=== PATIENT | female | born 1960 | race Caucasian/White ===

== ENCOUNTER 2017-12-05 11:42 | Day surgery (SDC) | payer MEDICARE, BC ==
[~2017-12-05] VITALS: Ht 152.4 cm; Wt 151.9 kg
[~2017-12-05 11:42] MED LIST: AMIT25 PO; CELE200 PO; DOCU100 PO; DULO30; ELIQUIS2.5 MG; GABA300; GABA300 PO; GABA600; LEVCAR2510 PO; MAGOXI400 PO; MELATIN3 MG PO; METF500C PO; MULVITMIND PO; MYRBETRIQ25 MG; OXYACE5T PO; PRAM.125 PO; Percocet 5-3251 EACH PO; ROPI1 PO; RXOXYACE PO; TERB24TC TOP; TRAM50 PO; Ultram50 MG PO; VALS80 PO; VITNEPH PO; Zantac150 MG PO; Zofran Odt8 MG SL
[2017-12-05] MEDS ORDERED: ALBU90OI (12:35)
[2017-12-05] MEDS ORDERED: DONE10 (12:35)
[2017-12-05] MEDS ORDERED: POTCHL10ER (12:36)
[2017-12-05] MEDS ORDERED: HYDR1TAB94 (12:37)
[2017-12-05] MEDS ORDERED: MAGOXI400 (12:37)
== END 2017-12-05 13:13 | disposition home or self-care (01) ==
LOC: ORSCSDS 11:42
PROVIDERS: Anesthesiology
PROC: 3E0R33Z Introduction of Anti-inflammatory into Spinal Canal, Percutaneous Approach (ICD-10-PCS; principal; 2017-12-05 12:30)
DX: M54.16 Radiculopathy, lumbar region (principal); G47.33 Obstructive sleep apnea (adult) (pediatric); E66.01 Morbid (severe) obesity due to excess calories; F32.9 Major depressive disorder, single episode, unspecified; J45.909 Unspecified asthma, uncomplicated; G20 Parkinson's disease; I10 Essential (primary) hypertension; E11.9 Type 2 diabetes mellitus without complications; Z79.899 Other long term (current) drug therapy; Z79.01 Long term (current) use of anticoagulants; Z51.81 Encounter for therapeutic drug level monitoring
CPT/HCPCS: 36415; 85610; J1040

== ENCOUNTER 2018-03-18 16:44 | Emergency (ER) | payer MEDICARE, BC ==
[~2018-03-18] VITALS: Ht 152.4 cm; Wt 165.6 kg
[~2018-03-18 16:44] MED LIST changes: +ALBU90OI; +DONE10; +HYDR1TAB94; +MAGOXI400; +POTCHL10ER
[2018-03-18] MEDS ORDERED: BUPR150ER PO (17:07)
[2018-03-18] MEDS ORDERED: GABA600 PO (17:07)
[2018-03-18] MEDS ORDERED: ELIQUIS5 MG PO (17:07)
[2018-03-18] MEDS ORDERED: GABA300 PO (17:07)
[2018-03-18] MEDS ORDERED: CARB25 PO (17:08)
[2018-03-18] MEDS ORDERED: CARBIDOPA/LEVODOPA PO ×2 (17:09→17:10)
[2018-03-18] MEDS ORDERED: ROPI2 PO (17:10)
[2018-03-18] MEDS ORDERED: ALBU90OI INH (17:10)
[2018-03-18] MEDS ORDERED: MYRBETRIQ50 MG PO (17:10)
[2018-03-18] MEDS ORDERED: DONE10 PO (17:10)
[2018-03-18] MEDS ORDERED: HYDR1TAB94 PO (17:11)
[2018-03-18] MEDS ORDERED: Cymbalta60 MG PO (17:11)
[2018-03-18] MEDS ORDERED: POTCHL10ER PO (17:11)
[2018-03-18] MEDS ORDERED: Percocet 5-3251 EACH PO (18:14)
== END 2018-03-18 19:20 | disposition home or self-care (01) ==
LOC: ER 16:44
DX: S42.201A Unspecified fracture of upper end of right humerus, initial encounter for closed fracture (principal); W01.0XXA Fall on same level from slipping, tripping and stumbling without subsequent striking against object, initial encounter; E11.9 Type 2 diabetes mellitus without complications; E66.01 Morbid (severe) obesity due to excess calories; Z79.899 Other long term (current) drug therapy
CPT/HCPCS: 29105; 73030; 96372; 99284; J3010

== ENCOUNTER → 2018-06-05 | Outpatient (CLI) | payer MEDICARE, BC ==
[~2018-06-05] MED LIST changes: +ALBU90OI INH; +BUPR150ER PO; +CARB25 PO; +CARBIDOPA/LEVODOPA PO; +Cymbalta60 MG PO; +DONE10 PO; +ELIQUIS5 MG PO; +GABA600 PO; +HYDR1TAB94 PO; +MYRBETRIQ50 MG PO; +POTCHL10ER PO; +ROPI2 PO
== END | disposition home or self-care (01) ==
LOC: LAB EV 18:49 → LAB SHORT 18:49
DX: M70.22 Olecranon bursitis, left elbow (principal)
CPT/HCPCS: 87070; 87075

== ENCOUNTER → 2018-11-11 | Outpatient (CLI) | payer MEDICARE, BC ==
[2018-11-11 13:55] LABS: Hematocrit 37.3 % (33.0-51.0); Hemoglobin 12.1 g/dL (11.5-16.0)
[2018-11-11 14:08] LABS: Albumin, Blood 3.4 g/dL (3.4-5.0); Anion Gap 11 mmol/L (6-16); Blood Urea Nitrogen 27 mg/dL (8-24); Bun/Creatinine Ratio 18.4 (12.0-20.0); CO2, Blood 27 mmol/L (21-32); Chloride, Blood 103 mmol/L (98-108); Creatinine, Blood 1.47 mg/dL (0.40-1.00); Glomerular Filtration Rate 36 (60-); Glucose, Blood 115 mg/dL (70-99); Phosphorus, Blood 3.8 mg/dL (2.5-4.9); Potassium, Blood 4.6 mmol/L (3.5-5.5); Sodium, Blood 141 mmol/L (136-145)
== END | disposition home or self-care (01) ==
LOC: LAB EV 13:45 → LAB SHORT 13:45
PROVIDERS: Internal Medicine
DX: N17.9 Acute kidney failure, unspecified (principal); N18.9 Chronic kidney disease, unspecified
CPT/HCPCS: 36415; 80069; 85014; 85018

== ENCOUNTER → 2019-03-26 | Outpatient (CLI) | payer MEDICARE, BC ==
[2019-03-26 10:33] LABS: Microalb/Creat Ratio UR, Rand Unable to Calculate mg/g (0.000-30.000); Microalbumin, Random Urine <5.000 mg/L (0.000-20.000)
== END ==
LOC: LAB EV 08:54
PROVIDERS: Family Medicine
DX: I10 Essential (primary) hypertension (principal)
CPT/HCPCS: 82043; 82570

== ENCOUNTER → 2019-10-24 | Outpatient (CLI) | payer MEDICARE, BC | LOC: LAB EV 10:53 → LAB SHORT 10:53 | DX: N39.0 Urinary tract infection, site not specified (principal) | CPT/HCPCS: 87086 ==

== ENCOUNTER 2020-08-21 09:47 | Inpatient (IN) | payer MEDICARE, BC ==
[~2020-08-21] VITALS: Ht 152.4 cm; Wt 139.9 kg
[~2020-08-21 09:47] MED LIST changes: +CARBLEV250 SL; +Cymbalta20 MG PO; -Cymbalta60 MG PO; -ROPI2 PO; +Ropinirole HCl1 MG PO
[2020-08-21 10:37] LABS: BASOPHILS ABSOLUTE AUTO 0.02 K/mm3 (0.00-0.23); BASOPHILS PERCENT AUTO 0 % (0-2); EOSINOPHILS ABSOLUTE AUTO 0.01 K/mm3 (0.00-0.68); EOSINOPHILS PERCENT AUTO 0 % (0-6); Hematocrit 36.2 % (33.0-51.0); Hemoglobin 11.5 g/dL (11.5-16.0); IMMATURE GRAN ABSOLUTE AUTO 0.03 K/mm3 (0.00-0.10); IMMATURE GRAN PERCENT AUTO 1 % (0-1); LYMPHOCYTES ABSOLUTE AUTO 0.55 K/mm3 (0.84-5.20); LYMPHOCYTES PERCENT AUTO 9 % (21-46); MONOCYTES ABSOLUTE AUTO 0.98 K/mm3 (0.16-1.47); MONOCYTES PERCENT AUTO 16 % (4-13); Mean Corpuscular HGB 30.6 pg (26.0-34.0); Mean Corpuscular HGB Conc 31.8 g/dL (31.5-36.5); Mean Corpuscular Volume 96 fL (80-100); Mean Platelet Volume 8.7 fL (9.1-12.4); NEUTROPHILS ABSOLUTE AUTO 4.74 K/mm3 (1.96-9.15); NEUTROPHILS PERCENT AUTO 75 % (41-73); Platelet Count 124 K/mm3 (150-400); RDW Coefficient Variation 14.4 % (11.7-14.2); RDW Standard Deviation 50.5 fL (35.1-46.3); Red Blood Cell Count 3.76 M/mm3 (3.80-5.20); White Blood Cell Count 6.33 K/mm3 (4.00-11.30)
[2020-08-21 10:52] LABS: Alanine Aminotransfer (ALT/SGP 9 U/L (12-78); Albumin, Blood 3.3 g/dL (3.4-5.0); Alk Phos 84 U/L (50-136); Anion Gap 4 mmol/L (6-16); Aspartate Aminotrans (AST/SGOT 16 U/L (12-37); Bilirubin, Total 0.5 mg/dL (0.1-1.0); Blood Urea Nitrogen 36 mg/dL (8-24); Bun/Creatinine Ratio 26.9 (12.0-20.0); CO2, Blood 28 mmol/L (21-32); Calcium, Blood 8.3 mg/dL (8.5-10.1); Chloride, Blood 109 mmol/L (98-108); Creatinine, Blood 1.34 mg/dL (0.40-1.00); Globulin, Blood 3.4 g/dL (2.2-4.0); Glomerular Filtration Rate 43 (60-); Glucose, Blood 108 mg/dL (70-99); Potassium, Blood 4.6 mmol/L (3.5-5.5); Sodium, Blood 141 mmol/L (136-145); Total Protein, Blood 6.7 g/dL (6.4-8.2); Troponin I <0.015 ng/mL (0.000-0.040)
[2020-08-21 13:11] LABS: PCO2 Arterial 41.1 mmHg (35-45); pH Blood Arterial 7.41 (7.35-7.45)
[2020-08-21] MEDS ORDERED: LISI5 PO (13:20)
[2020-08-21] MEDS ORDERED: Vitamin D2000 UNIT PO (13:23)
[2020-08-21] MEDS ORDERED: FURO20 PO (13:23)
[2020-08-21] MEDS ORDERED: PYRI100 PO (13:24)
[2020-08-21] MEDS ORDERED: CENTRUM SILVER1 EAC2 PO (13:24)
--- NOTE | 2020-08-21 18:46 | NUR ---
Taylor arrived from the ED on stretcher, and was assisted to the bed in room 13 with use of slider sheet and 3 staff members helping. She has a fever. Personal clothes were removed, pt gown put on as well as ice packs to her armpits. Pt states she feels chilled. Explained that it is due to her fever. Extra blankets removed and Tylenol given for fever. She is hungry. Food and ice water provided and medications given as scheduled for this time. Audible wheezing noted; pt states that she can feel and hear it. She is dyspneic with minimal activity. Spo2 93% on 2 l/min oxygen at rest, 90% while she is eating and drinking. Telemetry monitoring shows sinus rhythm at 82 bpm. Significant edema of her legs and feet and ankles, which pt states is worse than usual. Unable to get our largest BISHOP hose on her. PT's Urbano states that he will bring hers from home. 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 Call light in place, and pt is eating with good appetite with her at her side.
--- NOTE | 2020-08-22 05:19 | NUR ---
END OF SHIFT SUMMARY NO ACUTE CHANGES THIS SHIFT. PT REMAINS AXO. IN SR 80'S WITH STABLE BP. PT CONTINUES TO BE ON 3-4LNC, SPO2 >92% EXCEPT WHEN REPOSITIONING/MOVING. PT SPO2 DESATS QUICKLY AND RR INCREASES DRAMATICALLY AND EXP WHEEZES BECOME MUCH MORE PRONOUNCED. THIS RESOLVES AFTER A FEW MINUTES OF RESTING. PT HAS RECEIVED RT TREATMENTS TO NO AVAIL PER PT. PT HAS BEEN INCONTINENT MULTIPLE TIMES OF URINE THIS SHIFT. STAFF [place] [facility] [place] WAS NOT SUCCESFUL DUE TO SEVERE EXP DYSPNEA/DECONDITIONING. PT WAS SO TIRED THAT WHILE SITTING AT SIDE OF BED, SHE COULDN'T WAIT TO VOID AND COULDN'T GET ON BEDPAN NFAST ENOUGH THAT SHE BEGAN TO VOID ON THE FLOOR. PT HAS HAD A LOW GRADE FEVER FOR MOST OF SHIFT, TOWARDS END OF SHIFT, TEMPERATURE HAS INCREASED, SEE EMAR TYLENOL & ICEPACKS. OTHERWISE, PT HAS BEEN REPOSITIONED MULTIPLE TIMES BY STAFF, ADMISSION PACKET COMPLETED. WILL CONTINUE TO MONITOR UNTIL SHIFT CHANGE.
[2020-08-22 05:29] LABS: BASOPHILS ABSOLUTE AUTO 0.01 K/mm3 (0.00-0.23); BASOPHILS PERCENT AUTO 0 % (0-2); EOSINOPHILS PERCENT AUTO 0 % (0-6); Hematocrit 37.5 % (33.0-51.0); Hemoglobin 11.7 g/dL (11.5-16.0); IMMATURE GRAN ABSOLUTE AUTO 0.02 K/mm3 (0.00-0.10); IMMATURE GRAN PERCENT AUTO 0 % (0-1); LYMPHOCYTES ABSOLUTE AUTO 0.49 K/mm3 (0.84-5.20); LYMPHOCYTES PERCENT AUTO 7 % (21-46); MONOCYTES PERCENT AUTO 13 % (4-13); Mean Corpuscular HGB 30.5 pg (26.0-34.0); Mean Corpuscular HGB Conc 31.2 g/dL (31.5-36.5); Mean Corpuscular Volume 98 fL (80-100); Mean Platelet Volume 8.9 fL (9.1-12.4); NEUTROPHILS ABSOLUTE AUTO 5.75 K/mm3 (1.96-9.15); NEUTROPHILS PERCENT AUTO 80 % (41-73); Platelet Count 124 K/mm3 (150-400); RDW Coefficient Variation 14.5 % (11.7-14.2); RDW Standard Deviation 52.5 fL (35.1-46.3); Red Blood Cell Count 3.84 M/mm3 (3.80-5.20); White Blood Cell Count 7.17 K/mm3 (4.00-11.30)
[2020-08-22 05:40] LABS: International Normalized Ratio 1.22; Prothrombin Time Results 12.9 Sec (9.7-11.5)
[2020-08-22 05:56] LABS: Alanine Aminotransfer (ALT/SGP 8 U/L (12-78); Albumin, Blood 3.2 g/dL (3.4-5.0); Albumin/Globulin Ratio 0.8 (0.8-1.8); Alk Phos 81 U/L (50-136); Anion Gap 5 mmol/L (6-16); Aspartate Aminotrans (AST/SGOT 31 U/L (12-37); Bilirubin, Total 0.5 mg/dL (0.1-1.0); Blood Urea Nitrogen 37 mg/dL (8-24); Bun/Creatinine Ratio 25.7 (12.0-20.0); CO2, Blood 27 mmol/L (21-32); Calcium, Blood 8.5 mg/dL (8.5-10.1); Chloride, Blood 107 mmol/L (98-108); Creatinine, Blood 1.44 mg/dL (0.40-1.00); Globulin, Blood 3.8 g/dL (2.2-4.0); Glomerular Filtration Rate 39 (60-); Glucose, Blood 85 mg/dL (70-99); Potassium, Blood 4.6 mmol/L (3.5-5.5); Sodium, Blood 139 mmol/L (136-145); Troponin I <0.015 ng/mL (0.000-0.040)
--- NOTE | 2020-08-22 16:59 | NUR ---
SHIFT SUMMARY PATIENT HAS BEEN 2 PERSON MAX ASSIST WITH BEDPAN AND BED CHANGES TODAY. PATIENT ON 3L O2 VIA NASAL CANNULA. WAS AT BEDSIDE TODAY OFFERING SUPPORT. PATIENT HAS BEEN AOX3. PATIENT BECOMES VERY SOB WITH ANY EXERTION. AUDIBLE WHEEZES THROUGHOUT. CALL LIGHT WITHIN PATIENT REACH.
[2020-08-22 23:35] LABS: Source, Urine Catheter
[2020-08-22 23:45] LABS: Bilirubin, Urine Neg (Neg); Blood, Urine 1+ (Neg); Glucose Qualitative, Urine Neg (Neg); Ketones, Urine 1+ (Neg); Leukocyte Esterase, Urine Neg (Neg); Nitrite, Urine Neg (Neg); Protein, Urine 2+ (Neg); Urobilinogen, Urine NORM (Normal)
[2020-08-22 23:46] LABS: Appearance, Urine Clear (Clear); Color, Urine Yellow (P-Yellow)
[2020-08-22 23:51] LABS: Bacteria Few /hpf; Red Blood Cells, Urine 0-2 /hpf (0-2); Squamous Epithelial Cells Not Seen /hpf (Few); White Blood Cells, Urine 0-2 /hpf (0-5)
[2020-08-23 04:30] LABS: BASOPHILS ABSOLUTE AUTO 0.01 K/mm3 (0.00-0.23); BASOPHILS PERCENT AUTO 0 % (0-2); EOSINOPHILS PERCENT AUTO 0 % (0-6); Hematocrit 38.7 % (33.0-51.0); IMMATURE GRAN ABSOLUTE AUTO 0.01 K/mm3 (0.00-0.10); IMMATURE GRAN PERCENT AUTO 0 % (0-1); LYMPHOCYTES ABSOLUTE AUTO 0.51 K/mm3 (0.84-5.20); LYMPHOCYTES PERCENT AUTO 10 % (21-46); MONOCYTES ABSOLUTE AUTO 0.72 K/mm3 (0.16-1.47); MONOCYTES PERCENT AUTO 14 % (4-13); Mean Corpuscular HGB 30.3 pg (26.0-34.0); Mean Corpuscular Volume 98 fL (80-100); Mean Platelet Volume 8.8 fL (9.1-12.4); NEUTROPHILS ABSOLUTE AUTO 4.01 K/mm3 (1.96-9.15); NEUTROPHILS PERCENT AUTO 76 % (41-73); Platelet Count 130 K/mm3 (150-400); RDW Coefficient Variation 13.8 % (11.7-14.2); RDW Standard Deviation 50.6 fL (35.1-46.3); Red Blood Cell Count 3.96 M/mm3 (3.80-5.20); White Blood Cell Count 5.26 K/mm3 (4.00-11.30)
[2020-08-23 04:48] LABS: Albumin, Blood 2.8 g/dL (3.4-5.0); Albumin/Globulin Ratio 0.7 (0.8-1.8); Bilirubin, Total 0.4 mg/dL (0.1-1.0); Bun/Creatinine Ratio 31.5 (12.0-20.0); C-REACTIVE PROTEIN, EXT RANGE 14.4 mg/dL (0.000-0.300); Calcium, Blood 8.6 mg/dL (8.5-10.1); Creatinine, Blood 1.08 mg/dL (0.40-1.00); Globulin, Blood 3.8 g/dL (2.2-4.0); Total Protein, Blood 6.6 g/dL (6.4-8.2)
--- NOTE | 2020-08-23 04:51 | NUR ---
END OF SHIFT SUMMARY NO ACUTE CHANGES THIS SHIFT. VSS. REMAINS AXO. IN SR. ON 3LNC, SPO2 >92%. PT STATES BREATHING FEELS "EASIER AND LESS WHEEZY". LUNG SOUNDS ONLY PRESENT WITH WHEEZING WITH EXERTION. BONDS CATHETER WAS SUCCESFULLY PLACED THIS SHIFT AND URINE SAMPLE SENT TO LAB. PANNUS/FOLDS CLEANED EXTENSIVELY AND DRIED/NYSTATIN APPLIED. OTHERWISE, PT RESTING IN ROOM.STAFF CHECKING ON PT AND PEEKING THROUGH ANTE ROOM DOOR. PT REMAINS IN ISOLATION. NEGATIVE PRESSURE WORKING VIA THE MONITOR IN ANTE ROOM. WILL CONTINUE TO MONITOR UNTIL SHIFT CHANGE.
--- NOTE | 2020-08-23 08:22 | NUR ---
Pt alert, awake, audible transient wheezing noted. spo2 91% on room air at rest. improved to 95% on 2 l/min while eating. States she would like to sit up, but she is far too weak to do this at this time. She attempted, but could not, even with assistance. States she feels that her breathing is not as good as yesterday., She states that she is not in pain. She states she has a good appetite. STates had BM yesterday. Damon draining clear yellow urine. IV right wrist is leaking and painful to the pt when flushed. Will restart and then administer solumedrol afterwards.
--- NOTE | 2020-08-23 19:15 | NUR ---
ASSUMED CARE REPORT RECEIVED FROM ASH EVANS. PT SITTING UP IN RECLINER EATING DINNER. MILD TACYPNEA OBSERVED. SPO2@94% WITH O2@2LPM VIA N/C. DENIES ANY PAIN AT THIS TIME. CALL LIGHT WITHIN REACH. WILL CONTINUE TO MONITOR
--- NOTE | 2020-08-23 19:26 | NUR ---
Taylor was very tired this morning, but this afternoon after a bed bath she tolerated a transfer to the recliner chair with ceiling lift. Not able to sit on side of bed yet due to weakness. She has had a good appetite. Had a normal BM today, white continues draining clear yellow urine. Has continued to require 1-2 l/min of oxygen today. Audible and auscultated wheezing noted intermittently throughout the day, as well as tachypnea and dyspnea with minimal exertion. Normal sinus rhythm by telemetry montoring, and blood pressure stable.
[2020-08-24 04:54] LABS: BASOPHILS PERCENT AUTO 0 % (0-2); EOSINOPHILS PERCENT AUTO 0 % (0-6); Hematocrit 37.7 % (33.0-51.0); IMMATURE GRAN ABSOLUTE AUTO 0.01 K/mm3 (0.00-0.10); IMMATURE GRAN PERCENT AUTO 0 % (0-1); LYMPHOCYTES ABSOLUTE AUTO 0.53 K/mm3 (0.84-5.20); LYMPHOCYTES PERCENT AUTO 9 % (21-46); MONOCYTES ABSOLUTE AUTO 0.67 K/mm3 (0.16-1.47); MONOCYTES PERCENT AUTO 12 % (4-13); Mean Corpuscular HGB 30.5 pg (26.0-34.0); Mean Corpuscular HGB Conc 31.8 g/dL (31.5-36.5); Mean Corpuscular Volume 96 fL (80-100); Mean Platelet Volume 9.2 fL (9.1-12.4); NEUTROPHILS ABSOLUTE AUTO 4.43 K/mm3 (1.96-9.15); NEUTROPHILS PERCENT AUTO 79 % (41-73); Platelet Count 155 K/mm3 (150-400); RDW Coefficient Variation 13.7 % (11.7-14.2); RDW Standard Deviation 49.3 fL (35.1-46.3); Red Blood Cell Count 3.93 M/mm3 (3.80-5.20); White Blood Cell Count 5.64 K/mm3 (4.00-11.30)
[2020-08-24 05:13] LABS: Albumin, Blood 2.9 g/dL (3.4-5.0); Albumin/Globulin Ratio 0.8 (0.8-1.8); Bilirubin, Total 0.3 mg/dL (0.1-1.0); Bun/Creatinine Ratio 29.6 (12.0-20.0); Calcium, Blood 8.8 mg/dL (8.5-10.1); Creatinine, Blood 1.08 mg/dL (0.40-1.00); Globulin, Blood 3.8 g/dL (2.2-4.0); Potassium, Blood 4.8 mmol/L (3.5-5.5); Total Protein, Blood 6.7 g/dL (6.4-8.2)
--- NOTE | 2020-08-24 06:43 | NUR ---
SHIFT SUMMARY PT REMAINED A&O THROUGHOUT SHIFT. SPO2 92-95% WITH O2@2LPM, DYSPNEA WITH ALL REPOSITIONING AND EXERTION. PT HAS CORSE PAINFUL COUGH THAT SHE SAYS WOULDN'T ALLOW HER TO SLEEP. URINARY CATH REMOVED AT 0400 DUE TO PAIN, PT STATES SHE FEELS MUCH BETTER WITHOUT. PT DID CALL FOR BEDPAN AT 0600 AND VOIDED CLEAR YELLOW URINE.
--- NOTE | 2020-08-24 17:19 | NUR ---
Shift Summary Patient arrived to unit approximately 0945. Received report from Eli RN-PCU. Arrived via bed transfer, on 2L NC oxygen. No white catheter on arrival to unit, at bedside. A/Ox3, pleasant and cooperative with care, calls appropriately for needs. Incontinent/continent s/p white catheter removal last night per Eli, voiding good. 2 max assist c repositioning and changing. Denies pain. L/S wheezy throughout. Respirations > 20's, oxygen saturation > 91% on 2L NC. Dyspneic with exertion. Appetite is good. Will report to oncoming RN and cont. to monitor.
--- NOTE | 2020-08-24 18:23 | NUR ---
Jill was confused at first, but she cleared a bit with conversation. Prayer for healing provided. She was appreciaitve. She tells me she is hopeful for recovery. No family present at time of visit. I will remain available to pt and family.
--- NOTE | 2020-08-25 05:32 | NUR ---
SHIFT SUMMARY: VSS. BRADYCARDIC. RESPS 16-22. APPEAR LABORED BUT PT STATES SHE DOES NOT FEEL SOB. 02 SATS 92% ON 2L VIA NC. LS CLEAR W/DIM BASES. BRONCHIAL WHEEZING AUSCULTATED. OCC COUGH PRODUCING SMALL AMTS OF WHITE THICK SPUTUM. BREATHING TX PER RT. PT REMAINED IN BED TONIGHT. WAS ABLE TO TURN IN BED W/ 1 ASSIST. DENIES PAIN. NO ACUTE CONCERNS AT THIS TIME. WILL CONT TO MONITOR.
--- NOTE | 2020-08-25 19:27 | NUR ---
Shift Summary A/Ox4 with occassional forgetfulness. For example, patient asked for Tylenol for shoulder pain from assisting with repositioning and changing. When this RN went in to give medication, patient stated she had asked for that yesterday when in fact it was today. MIKEL (son) has called and wound like to know discharge planning status prior to discharge, this has been relayed to night nurse. Lung sounds: crackles and wheezes throughout. Remains on 2L O2, patient removes O2 and wears when feeling short of breath per patient state. Otherwise, no acute changes today. Will report to oncoming RN. MIKEL's phone number .
--- NOTE | 2020-08-26 04:21 | NUR ---
PROGRAM DIRECTOR/MORNING SHOW HOST SUMMARY PT WAS PLACED ON CONTINUOUS BI-OX AND HAS MAINTAINED AN O2 SATURATION OF >92 EVEN WHILE BEING ROLLED TO CHANGE BED. PT HAS HAD NO NEW S/S THIS SHIFT, PT STATES THAT HER BREATHING FEELS BETTER TODAY THAN PREVIOUS DAY. WCTM.
--- NOTE | 2020-08-26 17:15 | NUR ---
SUMMARY PT RESTING IN BED WATCHING TV, PT HAS BEEN PLEASANT AND COOPERATIVE WITH CARE, INCONTINENT AND IN ATTENDS, PT ABLE TO FEED HERSELF AND TAKE HER PILLS WHOLE, PT OCC FORGETFUL AND NEEDS REORIENTATION, PT ON A CONT PULSE OX, O2 STARTED AT 2L THIS MORNING AND HAS BEEN UP TO 4L, THERAPY HAS WORKED WITH THE PT, SHE TIRES EASILY, VSS, WILL CONT TO MONITOR
--- NOTE | 2020-08-27 05:56 | NUR ---
ZINC ETCHER SUMMARY PT HAD AN ELEVATED BP OF 188/90 AT THE START OF THE SHIFT SO THE PROVIDER [place] WAS CONTACTED AND SHE SAID TO CONTINUE TO MONITOR THE PT SO THE PT WAS REASSESED LATER IN THE SHIFT AND IT HAD DROPPED TO 129/69. PT IS ON 3L NC AND HAS MAINTAINED AN O2 SAT OF >90 EXCEPT ONCE WHEN THE O2 FELL OFF AND HER O2 SAT DROPPED TO 87. PT CONTINUES TO PRODUCE LARGE AMOUNTS OF INCONTINENT URINE. NO C/O PAIN OR NAUSEA, WCTM.
--- NOTE | 2020-08-27 10:16 | NUR ---
CHANGED depends and emptied resivoir, tried to use bed tan but nothing came, repositioned and cleaned pt
--- NOTE | 2020-08-27 10:22 | NUR ---
in to visit, said pt did not need to have an IV unless iv medication was required
--- NOTE | 2020-08-27 18:22 | NUR ---
sitting up eating dinner, able to reach call light, bed in low position, denies pain took all medication and treatments, will continue to monitor and treat until share bsr with noc nurse
--- NOTE | 2020-08-27 22:42 | NUR ---
CALLED HOSPITALIST PT EXPERIENCING INCREASED O2 NEEDS. PT WOB HAS INCREASED DRAMATICALLY. PT IS HALLUCINATING AND NO LONGER ABLE TO COMMUNICATE CLEARLY WITH ME ON PREVIOUS SHIFTS. SHE WAS RUNNING A LOW GRADE FEVER FOR WHICH I GAVE HER TYLENOL. HOSPITALIST HAS PUT IN ORDERS TO TRANSFER THE PT.
--- NOTE | 2020-08-27 23:20 | NUR ---
PT TRANSFER NOTE PT TRANSFERED TO ICU. PERSONAL POSSESSIONS SENT WITH PT. HANDOFF REPORT CALLED TO ICU NURSE WAQAR.
[2020-08-27 23:42] LABS: Source, Urine Catheter
[2020-08-27 23:45] LABS: Bilirubin, Urine Neg (Neg); Blood, Urine 1+ (Neg); Glucose Qualitative, Urine Neg (Neg); Ketones, Urine 1+ (Neg); Leukocyte Esterase, Urine 2+ (Neg); Nitrite, Urine Pos (Neg); Protein, Urine 1+ (Neg); Specific Gravity, Urine 1.015 (1.003-1.022); Urobilinogen, Urine NORM (Normal)
[2020-08-27 23:50] LABS: Appearance, Urine Hazy (Clear); Color, Urine Yellow (P-Yellow)
--- NOTE | 2020-08-27 23:52 | NUR ---
ASSUMED PT CARE AT 2250 PT ARRIVED ON UNIT ON 15L NON-REBREATHER. MOANING AND GROANING. UNABLE TO SPEAK IN COMPLETE SENTENCES. UNABLE TO ASSESS MENTATION. PT APPEARS TO BE HALLUCINATING SHE WILL GAZE OFF TO AN AREA IN THE ROOM AND THEN JUMP IF SOMETHING IS SCARING HER. HER TEMP IS 101.7; PER REPORT, PT WAS MEDICATED WITH TYENOL WITH GOOD EFFECT EARLIER. MAY ATTEMPT ANOTHER ADMINISTRATION VIA RECTALLY IF TEMP CONTINUES TO INCREASE. TEMP BONDS PROBE PLACED FOR MORE ACCURATE MEASUREMENT OF TEMP. URINE SENT TO LAB FOR UA. RESP RATE IN THE 30-40'S. SBP'S 90-110'S. HR 70'S; NSR. PT PLACED ON AIRVO AT 50L AT 57%. SPO2 96%. PT IS OKAY WITH INTUBATION; NO CPR. PT REMAINS ON AIRBORNE ISOLATION PRECAUTIONS D/T COVID POSITIVE PT ON HIFLOW OXYGEN. PT HAS ONE 20G IV TO LEFT FOREARM. UNSUCCESSFUL PERIPHERALS; PT FORMS A HEMATOMA SOON SHE IS POKED. IS GOING TO NEED A POWERGLIDE OR CENTRAL LINE OF SOME SORT. PT IS UNABLE TO DEMONSTRATE ADEQUATE USE OF CALL LIGHT; THEREFORE, WILL CONTINUE TO MONITOR CLOSELY.
[2020-08-27 23:55] LABS: Bacteria Many /hpf; Red Blood Cells, Urine 0-2 /hpf (0-2); Squamous Epithelial Cells Not Seen /hpf (Few); White Blood Cells, Urine 50-100 /hpf (0-5)
--- NOTE | 2020-08-28 00:05 | NUR ---
CALLED PT'S SPOUSE CALLED PT'S SPOUSE, LEOBARDO, INFORMED HIM OF PT TRANSFER TO ICU.
--- NOTE | 2020-08-28 00:23 | NUR ---
CALL TO FAMILY CALL PLACED TO , LEOBARDO, AND UPDATED REGARDING PT'S CONDITION.
[2020-08-28 04:12] LABS: BASOPHILS ABSOLUTE AUTO 0.02 K/mm3 (0.00-0.23); BASOPHILS PERCENT AUTO 0 % (0-2); EOSINOPHILS ABSOLUTE AUTO 0.01 K/mm3 (0.00-0.68); EOSINOPHILS PERCENT AUTO 0 % (0-6); Hematocrit 36.9 % (33.0-51.0); Hemoglobin 11.9 g/dL (11.5-16.0); IMMATURE GRAN ABSOLUTE AUTO 0.09 K/mm3 (0.00-0.10); IMMATURE GRAN PERCENT AUTO 1 % (0-1); LYMPHOCYTES ABSOLUTE AUTO 0.58 K/mm3 (0.84-5.20); LYMPHOCYTES PERCENT AUTO 7 % (21-46); MONOCYTES ABSOLUTE AUTO 0.71 K/mm3 (0.16-1.47); MONOCYTES PERCENT AUTO 8 % (4-13); Mean Corpuscular HGB 30.4 pg (26.0-34.0); Mean Corpuscular HGB Conc 32.2 g/dL (31.5-36.5); Mean Corpuscular Volume 94 fL (80-100); Mean Platelet Volume 8.8 fL (9.1-12.4); NEUTROPHILS ABSOLUTE AUTO 7.15 K/mm3 (1.96-9.15); NEUTROPHILS PERCENT AUTO 84 % (41-73); Platelet Count 177 K/mm3 (150-400); RDW Coefficient Variation 13.2 % (11.7-14.2); RDW Standard Deviation 45.7 fL (35.1-46.3); Red Blood Cell Count 3.92 M/mm3 (3.80-5.20); White Blood Cell Count 8.56 K/mm3 (4.00-11.30)
[2020-08-28 04:27] LABS: Bun/Creatinine Ratio 34.6 (12.0-20.0); Calcium, Blood 8.8 mg/dL (8.5-10.1); Creatinine, Blood 1.3 mg/dL (0.40-1.00); Potassium, Blood 4.4 mmol/L (3.5-5.5)
--- NOTE | 2020-08-28 06:24 | NUR ---
END OF SHIFT SUMMARY NO SIGNIFICANT CHANGE SINCE ENTRY NOTE. PT REMAINS ON AIRVO AT 50L WITH FIO2 57-59%; SPO2 >90%. MENTATION REMAINS UNCHANGED. PT VERY DIAPHORETIC WITH TEMP 101.7; THEREFORE, MEDICATED WITH KS TYLENOL WITH GOOD EFFECT. PT CONTINUED TO TAKE OFF AIRVO D/T AIR HUNGER. STATING "I CAN'T BREATHE". PLACED PT BACK ON AIRVO AND INTO BILATERAL SOFT WRIST RESTRAINTS. PT VERY CONFUSED. ORAL CARE PROVIDED MULTIPLE TIMES D/T DRY/CRACKED ORAL CAVITY AND LIPS. VSS, SEE FLOWSHEET. PT REMAINS SL; TOTAL URINE OUTPUT WAS 200CC OF DARK SHANTAL COLORED URINE; SEDIMENT NOTED. CALL OUT TO TAL REGARDING LOW URINE OUTPUT; HOWEVER, DR. PARADA PREFERRED IF DAY HOSPITALIST DECIDED IF MAINTENANCE FLUIDS ARE NEEDED OR NOT. PT REQUIRES FREQUENT CHECKS SHE DOESN'T NOT COMPREHEND HOW TO USE TO THE CALL LIGHT AT THIS TIME. WILL CONTINUE TO MONITOR UNTIL REPORT IS HANDED OFF TO ONCOMING RN.
--- NOTE | 2020-08-28 12:43 | NUR ---
ASSUMED CARE AT 0700 PT LAYING IN BED WITH AIRVO AT 50L, FIO2 60%, AND TOLERATING. PT APPEARS CONFUSED, PT SAID SHE WAS AT [facility] BUT IN [place]. PT ABLE TO ANSWER SOME YES/NO QUESTIONS AND FOLLOWS SIMPLE COMMANDS. TEMP 101.4, HR 83, BP 115/74. SEE SHIFT ASSESSMENT FOR FULL ASSESSMENT.
--- NOTE | 2020-08-28 18:32 | NUR ---
END OF SHIFT SUMMARY PT CONT TO BE ON AIRVO 50L, FIO2 60%. PT CONT TO BE CONFUSED KNOWING THAT SHE IS AT [facility] BUT IN [place], UNKNOWN MONTH AND YEAR. PT SLEPT ON AND OFF DURING SHIFT. ABLE TO GIVE MEDS ORALLY ONE AT A TIME AND ADDRESSING PT EACH TIME STATING THE ACTION. BONDS IN PLACE AND DRAINING TO GRAVITY. MAX TEMP 102.2, TEMP NOW 99.6. HR 60-70. RR 20'S. SBP 120-170. WILL REPORT TO PM RN WHEN AVAILABLE.
--- NOTE | 2020-08-28 19:55 | NUR ---
SHIFT ASSESSMENT ASSUMED CARE @ 1900, REPORT RECV'D FROM RICHIE AND MOIZ, RN'S. PT ALERT TO PERSON AND PLACE, SLOW TO ANSWER QUESTIONS BUT COOPERATIVE. INTERMITTENTLY CONFUSED. ON AIRVO 50L/ FIO2- 60% c O2 SATS >90%. SINUS/ SINUS DHRUV ON THE FISH AND WILDLIFE WARDEN. BONDS CATH PATENT, DRAINING YELLOW URINE. SOFT WRIST RESTRAINTS IN PLACE DUE TO PT PULLING OFF AIRVO. WILL CONTINUE TO MONITOR.
[2020-08-29 04:10] LABS: Hematocrit 37.7 % (33.0-51.0); Hemoglobin 12.5 g/dL (11.5-16.0); Mean Corpuscular HGB 31.1 pg (26.0-34.0); Mean Corpuscular HGB Conc 33.2 g/dL (31.5-36.5); Mean Corpuscular Volume 94 fL (80-100); Mean Platelet Volume 8.7 fL (9.1-12.4); Platelet Count 158 K/mm3 (150-400); RDW Coefficient Variation 12.9 % (11.7-14.2); RDW Standard Deviation 44.5 fL (35.1-46.3); Red Blood Cell Count 4.02 M/mm3 (3.80-5.20); White Blood Cell Count 9.96 K/mm3 (4.00-11.30)
[2020-08-29 04:37] LABS: Anion Gap 5 mmol/L (6-16); Blood Urea Nitrogen 28 mg/dL (8-24); CO2, Blood 29 mmol/L (21-32); Chloride, Blood 103 mmol/L (98-108); Creatinine, Blood 0.88 mg/dL (0.40-1.00); Glomerular Filtration Rate >60 (60-); Glucose, Blood 136 mg/dL (70-99); Potassium, Blood 4.4 mmol/L (3.5-5.5); Sodium, Blood 137 mmol/L (136-145)
[2020-08-29 04:58] LABS: BAND PERCENT MAN 6 % (0-8); BASOPHILS PERCENT MAN 0 % (0-2); EOSINOPHILS PERCENT MAN 0 % (0-6); LYMPHOCYTES ABSOLUTE MAN 0.29 K/mm3 (0.84-5.20); LYMPHOCYTES PERCENT MAN 3 % (21-46); MONOCYTES ABSOLUTE MAN 0.49 K/mm3 (0.16-1.47); MONOCYTES PERCENT MAN 5 % (4-13); NEUTROPHILS ABSOLUTE MAN 9.16 K/mm3 (1.96-9.15); SEG NEUTROPHILS PERCENT MAN 86 % (41-73); TOTAL CELLS COUNTED 100
--- NOTE | 2020-08-29 06:15 | NUR ---
SHIFT SUMMARY PT ALERT TO PERSON AND PLACE. HAS INTERMITTENT BOUTS OF CONFUSION/ VISUAL HALLUCINATIONS. RESTRAINTS REMAIN IN PLACE DUE TO THE INTERMITTENT BOUTS OF CONFUSION, PT WILL PULL OFF THE AIRVO. REMAINS ON AIRVO WITH THE SAME SETTINGS, O2 SATS >90%. BP STABLE. NSR/ SINUS DHRUV ON THE CAMP RECREATION SPECIALIST. BONDS CATH PATENT, DRAINING YELLOW URINE c 1850 OUT THIS AM. WILL CONTINUE TO MONITOR.
--- NOTE | 2020-08-29 10:17 | NUR ---
ASSUMED CARE AT 0700 PT LAYING IN BED WITH AIRVO AT 50L, FIO2 60%. PT O2 SAT REQUIRED AN INCREASE FIO2 TO 65%. PT HAS EPISODES OF CLARITY WHERE SHE KNOWS THAT SHE HAS BEEN ON DIFFERENT FLOORS IN THE HOSPITAL BUT THEN LATER WILL ASK WHERE SHE IS AND THAT SHE NEEDS TO GO TO THE HOSPITAL. PT ALSO ATTEMPTING TO GRAB AT AIRVO BUT IS REDIRECTABLE. HR 50-60'S. TEMP 100.2. SBP 150-170'S. BONDS IN PLACE AND DRAINING TO GRAVITY. SEE SHIFT ASSESSMENT FOR FULL ASSESSMENT.
--- NOTE | 2020-08-29 14:24 | NUR ---
GAVE REPORT REPORT GIVEN TO GEORGES EVANS TO ASSUME CARE AT 1400.
--- NOTE | 2020-08-29 20:42 | NUR ---
SHIFT ASSESSMENT REPORT RECV'D FROM NATHAN PAUL @ 1900. PT ALERT TO PERSON AND PLACE, HAVING INTERMITTENT BOUTS OF CONFUSION BUT REDIRECTABLE. AIRVO INITIALLY @ 60L/ 55% FIO2, TITRATED UP TO 60L/ 75% FIO2 DUE TO CONTINOUS O2 SAT OF 88%. SATS NOW 90-93%. PT IN [place] SOFT RESTRAINTS DUE TO THE INTERMITTENT CONFUSION AND PULLING OFF HER AIRVO. SINUS/ SINUS DHRUV ON THE MONITOR. BP STABLE. BONDS CATH PATENT, DRAINING YELLOW URINE WITH SEDIMENT. WILL CONTINUE TO MONITOR.
[2020-08-30 03:57] LABS: Base Excess Venous 7.3 mmol/L; Bicarbonate Venous 30.3 mmol/L (24.0-30.0); PCO2 Venous 42.2 mmHg (38-42); pH Blood Venous 7.47 (7.34-7.37)
[2020-08-30 04:02] LABS: BASOPHILS ABSOLUTE AUTO 0.04 K/mm3 (0.00-0.23); BASOPHILS PERCENT AUTO 0 % (0-2); EOSINOPHILS ABSOLUTE AUTO 0.01 K/mm3 (0.00-0.68); EOSINOPHILS PERCENT AUTO 0 % (0-6); Hematocrit 39.1 % (33.0-51.0); Hemoglobin 12.6 g/dL (11.5-16.0); IMMATURE GRAN ABSOLUTE AUTO 0.22 K/mm3 (0.00-0.10); IMMATURE GRAN PERCENT AUTO 2 % (0-1); LYMPHOCYTES ABSOLUTE AUTO 0.48 K/mm3 (0.84-5.20); LYMPHOCYTES PERCENT AUTO 4 % (21-46); MONOCYTES ABSOLUTE AUTO 0.58 K/mm3 (0.16-1.47); MONOCYTES PERCENT AUTO 5 % (4-13); Mean Corpuscular HGB Conc 32.2 g/dL (31.5-36.5); Mean Corpuscular Volume 93 fL (80-100); Mean Platelet Volume 8.8 fL (9.1-12.4); NEUTROPHILS ABSOLUTE AUTO 11.19 K/mm3 (1.96-9.15); NEUTROPHILS PERCENT AUTO 89 % (41-73); Platelet Count 198 K/mm3 (150-400); RDW Standard Deviation 44.2 fL (35.1-46.3); White Blood Cell Count 12.52 K/mm3 (4.00-11.30)
[2020-08-30 04:33] LABS: Alanine Aminotransfer (ALT/SGP 7 U/L (12-78); Albumin, Blood 2.5 g/dL (3.4-5.0); Albumin/Globulin Ratio 0.6 (0.8-1.8); Alk Phos 67 U/L (50-136); Anion Gap 4 mmol/L (6-16); Aspartate Aminotrans (AST/SGOT 40 U/L (12-37); Bilirubin, Total 0.7 mg/dL (0.1-1.0); Blood Urea Nitrogen 26 mg/dL (8-24); Bun/Creatinine Ratio 29.1 (12.0-20.0); CO2, Blood 32 mmol/L (21-32); Calcium, Blood 8.9 mg/dL (8.5-10.1); Chloride, Blood 101 mmol/L (98-108); Creatinine, Blood 0.89 mg/dL (0.40-1.00); Globulin, Blood 4.3 g/dL (2.2-4.0); Glomerular Filtration Rate >60 (60-); Glucose, Blood 129 mg/dL (70-99); Phosphorus, Blood 2.6 mg/dL (2.5-4.9); Potassium, Blood 4.5 mmol/L (3.5-5.5); Sodium, Blood 137 mmol/L (136-145); Total Protein, Blood 6.8 g/dL (6.4-8.2)
--- NOTE | 2020-08-30 07:38 | NUR ---
SHIFT SUMMARY PT REMAINS ON THE AIRVO @ 60L/ FIO2 TITRATED TO MAINTAIN O2 SATS >88%. PTS MENTATION CLEARED T/O THE NIGHT/ MORNING. PT FULLY ALERT. DISCUSSED WITH PT THE REMOVAL OF HER RESTRAINTS. SHE WAS ABLE TO FOLLOW ALL COMMANDS, AND UNDERSTOOD THE IMPORTANCE OF HER AIRVO. AFTER REMOVAL OF RESTRAINTS PT REQUESTED TO SPEAK WITH HER . ASSISTED PT WITH MAKING THE CALL. ATTEMPTED TO GET TO THE BEDSIDE COMMODE BUT COULD NOT TOLERATE DUE TO SOB. ASSISTED ON TO THE BEDPAN FOR A BM, PT NOT ABLE TO AT THAT TIME. BONDS CATH PATENT, DRAINING YELLOW/ TEA COLORED URINE. VSS, CALL LIGHT WITHIN REACH. REPORT TO ONCOMING NURSE
--- NOTE | 2020-08-30 18:20 | NUR ---
SHIFT SUMMARY PT WAS RESTLESS THROUGHOUT THE DAY. PT WAS PULLING OFF AIRVO AND GOWN WHILE SLEEPING, SOFT WRIST RESTRAINTS WERE ORDERED AND APPLIED. PT HAS TOLERATED THE RESTRAINTS WELL. PT HAS STRUGGLED TO MAINTAIN SAT >90% TITRATION HAS BEEN NEEDED THROUGHOUT THE DAY, CURRENTLY PT IS ON AIRVO AT 60L 67% FIO2. VS HAVE BEEN STABLE OTHERWISE. URINE IS STILL SHANTAL/TEA COLORED. THE IV IN THE LEFT FOREARM BEGAN LEAKING AND WAS FALLING OUT. THE IV WAS PULLED AND SEVERAL ATTEMPTS BY NATHAN COLE AND NATHAN MEJIA WERE MADE TO REPLACE THE IV. IT WAS REQUESTED THAT THE PICC NURSE PLACE A POWERGLIDE IF POSSIBLE, CURRENTLY PT ONLY HAS ONE LINE. PT WAS TURNED THROUGHOUT THE DAY. PT HAS REDNESS UNDER HER BREASTS, BELLY FOLDS AND GROIN. PT HAS BEEN CONFUSED ON AND OFF THROUGHOUT THE DAY; SHE IS ORIENTED TO SELF AND OCCASSIONALLY HER LOCATION
--- NOTE | 2020-08-30 20:00 | NUR ---
ASSUMED CARE OF PT, REPORT RCV'D FROM NATHAN MELENDEZ. PT ALERT TO SELF, ABLE TO ANSWER SIMPLE QUESTIONS BUT IS OCCASIONALLY CONFUSED. PT ON AIRVO 60L, 80% FIO2 SATS 88%. SEE SHIFT ASSESSMENT
--- NOTE | 2020-08-30 23:00 | NUR ---
2129: PT SATS WENT LOW 49% ON AIRVO 60L, 95%. CALLED RESPIRATORY THERAPY WHO PLACED NON REBREATHER ON PT IN ADDITION TO AIRVO WHILE SETTING CPAP UP. CALL TO DR. POSADAS FOR UPDATED STATUS. PT PLACED ON CPAP 12, 100%. SATS IMPROVED TO LOW 90%. 2199: PT SEDATED AND INTUBATED. VENT SETTINGS AC 18/400/10/100%, PROPOFOL @60 MCG/KG/MIN. OGT INSERTED TO LIS. 0000: PT PRONED PER DR. POSADAS'S ORDER. NIMBEX STARTED AT 2.5 MCG/KG/MIN AT ADJUSTED WT OF 89 KG. (TRAIN OF FOUR 11/12). BIZ MONITOR ATTACHED TO PT'S FOREHEAD BIZ NUMBER [id number] CURRENTLY.
[2020-08-31 00:35] LABS: PCO2 Arterial 46.5 mmHg (35-45); PO2 Arterial 89.3 mmHg (80-100); pH Blood Arterial 7.43 (7.35-7.45)
--- NOTE | 2020-08-31 06:12 | NUR ---
SHIFT SUMMARY PT REMAINS INTUBATED AND SEDATED. VENT SETTINGS AC 18/400/10/60% WITH SATS>90%. PROPOFOL @ 55 MCG/KG/MIN, NIMBEX @ 2.5 MCG/KG/MIN (89 KG DOSE WT). BIS MONITORING 50-55. PT CURRENTLY PRONED UNTIL 0700. PT DIFFICULT TO REPOSITION WHILE PRONED PT'S JOINTS VERY STIFF, RIGHT ARM UNABLE TO MOVE IN UPWARD POSITION. OGT TO LIS, SMALL AMOUNT OF BILE SUCTIONED. TEMP BONDS PATENT AND DRAINING TO GRAVITY. PT HAD SEVERAL EPISODES OF HYPERTENSION CURRENTLY NORMOTENSIVE. RIJ CENTRAL LINE PATENT, OOZING AROUND INSERTION SITE. WILL REPORT TO DAYSMSFT NURSE
--- NOTE | 2020-08-31 08:30 | NUR ---
REPORT TAKEN FROM NATHAN BELLO. ASSUMED CARE OF PT @ 0700. PT INTUBATED, SEDATED, PARALYZED. VENT AC 16/400 10/60%. PROPOFOL GTT @55mcg/kg/min, BIZ MONITOR IN PLACE READINGS 40s-60s. WILL TITRATE TO EFFECT. NIMBEX GTT @ 2.5mcg/kg/min, BASED ON IDEAL BODY WEIGHT. TRAIN OF 01/10, WILL TITRATE FOR EFFECT. PT RESP RATE LOW 20s. LS CLEAR, DIMINISHED IN BASES, LARGE BODY HABITUS. NO COUGH, GAG, SWALLOW REFLEX. ABD SOFT, BT HYPOACTIVE, OG TUBE TO LOW INT SUCTION. ANTICIPATE TUBE FEEDINGS TO START TODAY. BONDS PATENT, DRAINING SHANTAL OUTPUT TO GRAVITY. SINUS RHYTHM IN 60s, BP STABLE. O2 SATS >96%. CENTRAL LINE TO R IJ. WILL CHANGE DRESSING THIS SHIFT. PT PRONED @ SHIFT CHANGE. PLACED SUPINE @ APPROX [id number], W/OUT DIFF. PLAN TO PRONE Q6.
--- NOTE | 2020-08-31 17:29 | NUR ---
Provided supportive visit to son, MIKEL. Prayer for Jill. MIKEL states that he, his brother, Harry, and their father understand that Jill would not have wanted to be on "machines for very long." Her QOL has been declining in recent years with her multiple, chronic illnesses. Today, Jill is on vent and sedated. I will remain available to pt and family.
--- NOTE | 2020-08-31 17:39 | NUR ---
SHIFT SUMMARY: PT INTUBATED, SEDATED, PARALYZED. VENT AC 16/400, 10/50%. NIMBEX GTT @ 5mcg/kg/min, PROPOFOL GTT @ 55mcg/kg/min. BIS MONITOR BETWEEN 40-50. NIMBEX TITRATED UP THIS SHIFT, PT CONTINUES TO BREATHE OVER THE VENT, 22-24RR, TRAIN OF 4 WENT FROM 4/4 TO 0/4. DISCUSSED ASYNCHRONY W/ GOSMAN, PER CLAIRE OK IF BREATHING OVER VENT IN THE LOW 20s. O2 SATS >90% FOR ENTIRE SHIFT. LS REMAIN CLEAR. TUBE FEEDINGS STARTED THIS SHIFT, TRICKLE FEEDS @10ml/hr W/ 30ML FLUSHES Q4. BONDS PATENT & DRAINING TO GRAVITY, 1200mls DARK YELLOW OUTPUT THIS SHIFT. PT PRONED Q6, CURRENTLY IN A PRONE POSITION @ THIS TIME. TOLERATING WELL W/ SATS MAINTAINING >93%. BP STABLE. PER SON, AJ, FAMILY MEETING TO DISCUSS POSS COMFORT CARE THIS EVENING. WILL CONTINUE TO MONITOR UNTIL REPORT OFF TO ONCOMING RN.
--- NOTE | 2020-08-31 21:21 | NUR ---
ASSUMED CARE OF PT. PT INTUBATED, VENT SETTINGS AC 16/300/10/50%. PROPFOL @ 50 MCG/KG/MIN, BIS MONITORING @ 44-50. NIMBEX INFUSING @ 3.5 MCG/KG/MIN, TRAIN OF FOUR 1-2/4 ON LEFT EYEBROW. VITAL HIGH PROTEIN INFUSING AT GOAL RATE OF 10 MLS/HR. PT CURRENTLY IN PRONE POSITIONING. REPOSITION ARMS, LEGS Q2 TOLERATED. PT VERY STIFF AND DIFFICULT TO MANIPULATE EXTREMETIES. SEE FULL SHIFT ASSESSMENT.
[2020-09-01 05:10] LABS: PCO2 Arterial 71.5 mmHg (35-45); PO2 Arterial 72.5 mmHg (80-100); pH Blood Arterial 7.25 (7.35-7.45)
[2020-09-01 05:32] LABS: BASOPHILS ABSOLUTE AUTO 0.07 K/mm3 (0.00-0.23); BASOPHILS PERCENT AUTO 1 % (0-2); EOSINOPHILS PERCENT AUTO 0 % (0-6); Hematocrit 42.6 % (33.0-51.0); Hemoglobin 13.5 g/dL (11.5-16.0); IMMATURE GRAN ABSOLUTE AUTO 0.57 K/mm3 (0.00-0.10); IMMATURE GRAN PERCENT AUTO 4 % (0-1); LYMPHOCYTES ABSOLUTE AUTO 0.43 K/mm3 (0.84-5.20); LYMPHOCYTES PERCENT AUTO 3 % (21-46); MONOCYTES ABSOLUTE AUTO 0.98 K/mm3 (0.16-1.47); MONOCYTES PERCENT AUTO 7 % (4-13); Mean Corpuscular HGB 29.9 pg (26.0-34.0); Mean Corpuscular HGB Conc 31.7 g/dL (31.5-36.5); Mean Corpuscular Volume 94 fL (80-100); Mean Platelet Volume 8.5 fL (9.1-12.4); NEUTROPHILS ABSOLUTE AUTO 12.19 K/mm3 (1.96-9.15); NEUTROPHILS PERCENT AUTO 86 % (41-73); Platelet Count 226 K/mm3 (150-400); RDW Coefficient Variation 12.9 % (11.7-14.2); RDW Standard Deviation 45.1 fL (35.1-46.3); Red Blood Cell Count 4.52 M/mm3 (3.80-5.20); White Blood Cell Count 14.24 K/mm3 (4.00-11.30)
[2020-09-01 05:56] LABS: Anion Gap 3 mmol/L (6-16); Blood Urea Nitrogen 35 mg/dL (8-24); Bun/Creatinine Ratio 36.2 (12.0-20.0); CO2, Blood 32 mmol/L (21-32); Calcium, Blood 8.8 mg/dL (8.5-10.1); Chloride, Blood 100 mmol/L (98-108); Creatinine, Blood 0.97 mg/dL (0.40-1.00); Glomerular Filtration Rate >60 (60-); Glucose, Blood 183 mg/dL (70-99); Magnesium, Blood 2.3 mg/dL (1.6-2.4); Phosphorus, Blood 5.4 mg/dL (2.5-4.9); Potassium, Blood 4.6 mmol/L (3.5-5.5); Sodium, Blood 135 mmol/L (136-145)
--- NOTE | 2020-09-01 06:29 | NUR ---
SHIFT SUMMARY NO ACUTE CHANGES OVERNIGHT. PT REMAINS INTUBATED, VENT SETTING AC 18/300/10/45%. PT REMAINS ON PROPOFOL 35 MCG/KG/MIN. NIMBEX @ 3 MCG/KG/MIN. BIS MONITOR 43-49. PT AFEBRILE, VSS T/O SHIFT. WILL REPORT TO DAYSHIFT NURSE.
--- NOTE | 2020-09-01 07:00 | NUR ---
REPORT TAKEN FROM NATHAN BELLO. PT INTUBATED, SEDATED, & PARALYZED. PROPOFOL GTT @ 35, NIMBEX GTT@ 3.0. VENT AC 16/300, 10/45%. BIS MONITOR IN PLACE READINGS 40s-50s. TRAIN OF 4, 0/4. WILL TITRATE FOR EFFECT. PT RESP RATE LOW 30s. LS CLEAR W/ SLIGHT RUB TO RUL. NO COUGH, GAG, SWALLOW REFLEX. ABD SOFT, BT HYPOACTIVE. OG TUBE RECEIVING TUBE FEEDINGS @ 10ml/hr. BONDS PATENT, DRAINING DARK SHANTAL URINE TO GRAVITY. HR IRREGULAR, LOW 100s bpm. SATS >95%. CENTRAL LINE TO R IJ, DRESSING C/D/I. NIMBEX TITRATED UP TO 3.5mcg/kg/min. PLAN TO PRONE @ 0830. WILL CONTINUE TO MONITOR.
--- NOTE | 2020-09-01 18:02 | NUR ---
Spiritual care note: Participated in family meeting with Jill's sons, MIKEL and Harry. Both verbalize understanding that pt is most likely nearing end-of-life. They plan on speaking with their father this evening to determine POC going forward. Pt's spouse is also ill with Covid. Of note, pt's sister is critically ill with Covid and an uncle here three days ago. Family is clearly and understandably overwhelmed. Prayer and presence is appreciaited. I will remain available.
--- NOTE | 2020-09-01 18:11 | NUR ---
SHIFT SUMMARY: PT INTUBATED, SEDATED, PARALYZED. VENT: AC 16/300 10/45%. NIMBEX GTT @ 3.0mcg/kg/min, PROPOFOL GTT @ 35mcg/kg/min. BIS MONITOR IN PLACE @ 30-40. TRAIN OF 4 DIFF TO OBTAIN W/ INTERMITTENT RESULTS; AT TIMES 0/4 & 2/4. PT CONTINUES TO BREATHE OVER THE VENT @ 22-26RR. LS CLEAR W/ RUB TO RUL. TRICKLE FEEDS CONTINUE W/ 5/100/0 RESIDUAL TODAY. BONDS PATENT & DRAINING TO GRAVITY W/ 700ml TEA-COLORED OUTPUT W/ SIGNIFICANT SEDIMENT. PALLIATIVE & PASTORAL CARE HAVE BEEN IN CONTACT W/ PTs FAMILY, CONSIDERING COMFORT CARE. PT PRONED @ 0830 W/ PLAN TO REMAIN PRONE FOR UP TO 18hr PT TOLERATES -PER GOSMAN. WILL CONTINUE TO MONITOR UNTIL REPORT OFF TO ONCOMING RN.
[2020-09-02 04:45] LABS: BASOPHILS ABSOLUTE AUTO 0.07 K/mm3 (0.00-0.23); BASOPHILS PERCENT AUTO 1 % (0-2); EOSINOPHILS ABSOLUTE AUTO 0.01 K/mm3 (0.00-0.68); EOSINOPHILS PERCENT AUTO 0 % (0-6); Hematocrit 41.5 % (33.0-51.0); Hemoglobin 13.2 g/dL (11.5-16.0); IMMATURE GRAN ABSOLUTE AUTO 0.72 K/mm3 (0.00-0.10); IMMATURE GRAN PERCENT AUTO 6 % (0-1); LYMPHOCYTES PERCENT AUTO 5 % (21-46); MONOCYTES ABSOLUTE AUTO 1.07 K/mm3 (0.16-1.47); MONOCYTES PERCENT AUTO 8 % (4-13); Mean Corpuscular HGB 30.1 pg (26.0-34.0); Mean Corpuscular HGB Conc 31.8 g/dL (31.5-36.5); Mean Corpuscular Volume 95 fL (80-100); Mean Platelet Volume 8.4 fL (9.1-12.4); NEUTROPHILS ABSOLUTE AUTO 10.51 K/mm3 (1.96-9.15); NEUTROPHILS PERCENT AUTO 80 % (41-73); Platelet Count 198 K/mm3 (150-400); RDW Coefficient Variation 12.9 % (11.7-14.2); RDW Standard Deviation 45.4 fL (35.1-46.3); Red Blood Cell Count 4.38 M/mm3 (3.80-5.20); White Blood Cell Count 13.08 K/mm3 (4.00-11.30)
[2020-09-02 05:01] LABS: PCO2 Arterial 62.1 mmHg (35-45); PO2 Arterial 54.6 mmHg (80-100); pH Blood Arterial 7.31 (7.35-7.45)
[2020-09-02 05:01] LABS: Anion Gap 2 mmol/L (6-16); Blood Urea Nitrogen 34 mg/dL (8-24); Bun/Creatinine Ratio 45.5 (12.0-20.0); CO2, Blood 32 mmol/L (21-32); Calcium, Blood 8.6 mg/dL (8.5-10.1); Chloride, Blood 101 mmol/L (98-108); Creatinine, Blood 0.75 mg/dL (0.40-1.00); Glomerular Filtration Rate >60 (60-); Glucose, Blood 169 mg/dL (70-99); Magnesium, Blood 2.2 mg/dL (1.6-2.4); Phosphorus, Blood 3.3 mg/dL (2.5-4.9); Potassium, Blood 4.5 mmol/L (3.5-5.5); Sodium, Blood 135 mmol/L (136-145)
--- NOTE | 2020-09-02 06:23 | NUR ---
SHIFT SUMMARY PT REMAINS INTUBATED AND SEDATED. VENT SETTINGS AC 18/300/10/40%. PROPOFOL @ 20 MCG/KG/MIN, NIMBEX @ 2 MCG/KG/MIN. BIS MONITOR 42-49, TRAIN OF FOR 1-11/12. PT UNPRONED @0200. VSS T/O SHIFT. WILL REPORT TO DAYSHIFT NURSE.
--- NOTE | 2020-09-02 10:26 | NUR ---
CARE ASSUMED OF PT AT 0700. PT PARALYZED ON NIMBEX AT 2MCG AND SEDATED W PROPOFOL AT 20MCG FOR MECH VENT. PT NOT PRONED THIS AM PER DR RANGEL. PT TO BE PRONED IF FIO2 >60%. SETTINGS AT AC 16/ VC300/ PEEP 10. FIO2 WAS AT 35% AND INCREASED TO 45% BY DR RANGEL AT 1000. NIMBEX STOPPED AT [address] RANGEL. PROPOFOL INCREASED TO 30. PT BREATHING OVER VENT 25-35. PT COUGHS ON VENT. TWITCHING MOVEMENT NOTED TO LEFT HAND AND LEFT FOOT. TF AT TRICKLE FEED AT 10; THIS MAY BE INCREASED LATER TODAY. PT'S SON AJ GIVEN UPDATE BY MYSELF AND DR RANGEL.
--- NOTE | 2020-09-02 12:12 | NUR ---
Supportive visit with patients son and phone call to patients . Patients reviewed that he was advised by his primary care physician doctor Michael Neri to stay the course for a few more days and see how she does. Pt is very fatigued he relays how she would not want to go this far and that her quality of life is declinined. Reviewed holistic approach based on reducing suffering. AT this point he is willing to keep with the current plan.
--- NOTE | 2020-09-02 12:44 | NUR ---
FIO2 AT 45%, PEEP AT 10. SPO2 95%. PT BRADY, DOES NOT OPEN EYES OR FOLLOWS COMMANDS. HAS + COUGH. WEAK SWALLOW, COUGH. PROPOFOL AT 30MCG. NO OTHER CHANGES.
--- NOTE | 2020-09-02 18:34 | NUR ---
SATS CONT TO RANGE BETWEEN 93-96% ON 45% FIO2. PEEP REMAINS AT 10. PROPOFOL AT 35MCG. PT GRIMACES AND MOVES EXTREMITIES TO NOXIOUS STIMULI BUT DOES NOT FOLLOW DIRECTIONS. TF REMAINS AT TRICKLE FEEDS; THIS MAY BE INCREASED TOMORROW. PT TO BE PRONED ONLY IF FIO2 REQUIREMENTS INCREASE >60% PER DR RANGEL.
--- NOTE | 2020-09-02 19:45 | NUR ---
SHIFT ASSESSMENT ASSUMED CARE OF PT @ 1900. REPORT RECV'D FROM NATHAN BURGOS. PT INTUBATED AND SEDATED. VENT SETTINGS-AC: 16, 300, 45%, PEEP 10 c O2 SATS >90%. PROPOFOL GTT @ 35MCG. TUBE FEED @ [facility]. BONDS CATH PATENT, DRAINING TO GRAVITY. WILL CONTINUE TO MONITOR AND PRONE IF NEEDED PER FIO2.
[2020-09-03 04:21] LABS: BASOPHILS ABSOLUTE AUTO 0.06 K/mm3 (0.00-0.23); BASOPHILS PERCENT AUTO 1 % (0-2); EOSINOPHILS PERCENT AUTO 0 % (0-6); Hematocrit 35.7 % (33.0-51.0); Hemoglobin 11.4 g/dL (11.5-16.0); IMMATURE GRAN ABSOLUTE AUTO 0.58 K/mm3 (0.00-0.10); IMMATURE GRAN PERCENT AUTO 5 % (0-1); LYMPHOCYTES ABSOLUTE AUTO 0.98 K/mm3 (0.84-5.20); LYMPHOCYTES PERCENT AUTO 8 % (21-46); MONOCYTES ABSOLUTE AUTO 1.04 K/mm3 (0.16-1.47); MONOCYTES PERCENT AUTO 9 % (4-13); Mean Corpuscular HGB 30.3 pg (26.0-34.0); Mean Corpuscular HGB Conc 31.9 g/dL (31.5-36.5); Mean Corpuscular Volume 95 fL (80-100); Mean Platelet Volume 8.8 fL (9.1-12.4); NEUTROPHILS ABSOLUTE AUTO 9.18 K/mm3 (1.96-9.15); NEUTROPHILS PERCENT AUTO 78 % (41-73); Platelet Count 186 K/mm3 (150-400); RDW Coefficient Variation 13.1 % (11.7-14.2); Red Blood Cell Count 3.76 M/mm3 (3.80-5.20); White Blood Cell Count 11.84 K/mm3 (4.00-11.30)
[2020-09-03 04:37] LABS: Anion Gap 1 mmol/L (6-16); Blood Urea Nitrogen 41 mg/dL (8-24); Bun/Creatinine Ratio 48.5 (12.0-20.0); CO2, Blood 34 mmol/L (21-32); Calcium, Blood 8.4 mg/dL (8.5-10.1); Chloride, Blood 103 mmol/L (98-108); Creatinine, Blood 0.85 mg/dL (0.40-1.00); Glomerular Filtration Rate >60 (60-); Glucose, Blood 149 mg/dL (70-99); Magnesium, Blood 2.3 mg/dL (1.6-2.4); Phosphorus, Blood 2.5 mg/dL (2.5-4.9); Potassium, Blood 4.5 mmol/L (3.5-5.5); Sodium, Blood 138 mmol/L (136-145)
--- NOTE | 2020-09-03 06:34 | NUR ---
SHIFT SUMMARY PT REMAINS INTUBATED AND SEDATED. NO SIGNIFICANT CHANGES IN PT CONDITION. PT DID NOT REQUIRE PRONING DURING THE NIGHT/ MORNING. ATTEMPTED TO TITRATE FI02 TO 30%, SATS DECREASED TO MID/ HIGH 80'S. FIO2 TITRATED BACK TO 45% c O2 SATS > 92%. WILL CONTINUE TO MONITOR, REPORT TO ONCOMING NURSE.
--- NOTE | 2020-09-03 09:01 | NUR ---
CARE ASSUMED OF PT AT 0700. PT SEDATED ON PROPOFOL AT 30MCG FOR MECH VENT. PT OCC STACKS BREATHS ON VENT BUT SPO2 HAS REMAINED STABLE OVER >93% ON 45% FIO2. PT'S LUNGS ARE CLEAR; DIMINISHED TO BASES. PROPOFOL PLACED ON SB FOR SED VAC; PT WOKE UP WITHIN 5 MIN. PT DECLINED TO OPEN EYES, VERY ANXIOUS, ABLE TO FOLLOW SOME SIMPLE COMMANDS SUCH GRIPING HANDS WEAKLY. NODDED HEAD YES TO PAIN; FENT 25MCG GIVEN. AGAIN PT DID NOT FULLY WAKE UP OR FOLLOW ALL COMMANDS POSSIBLY D/T HIGH ANXIETY; PT ALSO STARTED TO STACK ON VENT CONSISTENTLY OFF OF SEDATION. PROPOFOL RESTARTED AT 20MCG PT WAS HYPOTENSIVE PRE SED VAC. HTN MEDS HELD.
--- NOTE | 2020-09-03 10:34 | NUR ---
DR POSADAS GIVEN FULL UPDATE. DIRECTOR MICROBIOLOGY GIVEN UPDATE; TF MAY BE INCREASED FROM 10CC/HR TODAY. BP IMPROVING.
--- NOTE | 2020-09-03 15:05 | NUR ---
PT'S SON AJ GIVEN UPDATE BY DR POSADAS AND BY MYSELF. TF INCREASED TO 25CC/HR W 50CC/HR GOAL RATE. BP IMPROVED THIS AFTERNOON. SATS 96% ON 40% FIO2. PEEP REMAINS AT 10.
--- NOTE | 2020-09-03 16:23 | NUR ---
PT HYPERTENSIVE, GRIMACING, COUGHING AND STACKING ON VENT. FENT 50MCG GIVEN FOR COMFORT. URINE UROMETER CHANGED IT WAS LEAKING. 1675CC URINE EMPTIED.
--- NOTE | 2020-09-03 18:00 | NUR ---
SHIFT ASSESSMENT REPORT RECV'D FROM NATHAN BURGOS. ASSUMED CARE OF PT @ 1900. PT INTUBATED AND SEDATED. PROPOFOL @ 20MCG. VENT SETTINGS: AC-16, 300, 45%, PEEP-10 c O2 SAT >90%. SUCTIONED SMALL AMOUNT OF THICK SPUTUM. TF @ 25ML. NSR ON THE MONITOR. VSS. WILL CONTINUE TO MONITOR.
[2020-09-04 04:58] LABS: BASOPHILS ABSOLUTE AUTO 0.09 K/mm3 (0.00-0.23); BASOPHILS PERCENT AUTO 1 % (0-2); EOSINOPHILS ABSOLUTE AUTO 0.02 K/mm3 (0.00-0.68); EOSINOPHILS PERCENT AUTO 0 % (0-6); Hematocrit 35.8 % (33.0-51.0); Hemoglobin 11.5 g/dL (11.5-16.0); IMMATURE GRAN ABSOLUTE AUTO 0.85 K/mm3 (0.00-0.10); IMMATURE GRAN PERCENT AUTO 6 % (0-1); LYMPHOCYTES ABSOLUTE AUTO 1.56 K/mm3 (0.84-5.20); LYMPHOCYTES PERCENT AUTO 11 % (21-46); MONOCYTES ABSOLUTE AUTO 1.12 K/mm3 (0.16-1.47); MONOCYTES PERCENT AUTO 8 % (4-13); Mean Corpuscular HGB 30.5 pg (26.0-34.0); Mean Corpuscular HGB Conc 32.1 g/dL (31.5-36.5); Mean Corpuscular Volume 95 fL (80-100); Mean Platelet Volume 8.9 fL (9.1-12.4); NEUTROPHILS ABSOLUTE AUTO 10.41 K/mm3 (1.96-9.15); NEUTROPHILS PERCENT AUTO 74 % (41-73); Platelet Count 189 K/mm3 (150-400); RDW Coefficient Variation 13.4 % (11.7-14.2); RDW Standard Deviation 47.3 fL (35.1-46.3); Red Blood Cell Count 3.77 M/mm3 (3.80-5.20); White Blood Cell Count 14.05 K/mm3 (4.00-11.30)
[2020-09-04 05:16] LABS: Anion Gap 4 mmol/L (6-16); Blood Urea Nitrogen 39 mg/dL (8-24); Bun/Creatinine Ratio 52.5 (12.0-20.0); CO2, Blood 32 mmol/L (21-32); Calcium, Blood 8.7 mg/dL (8.5-10.1); Chloride, Blood 106 mmol/L (98-108); Creatinine, Blood 0.74 mg/dL (0.40-1.00); Glomerular Filtration Rate >60 (60-); Glucose, Blood 156 mg/dL (70-99); Magnesium, Blood 2.3 mg/dL (1.6-2.4); Phosphorus, Blood 2.8 mg/dL (2.5-4.9); Potassium, Blood 4.5 mmol/L (3.5-5.5); Sodium, Blood 142 mmol/L (136-145)
--- NOTE | 2020-09-04 06:17 | NUR ---
SHIFT SUMMARY PT REMAINS INTUBATED AND SEDATED. NO CHANGES IN VENT SETTINGS. PROPOFOL TITRATED NEEDED. SEDATION VACATION PERFORMED THIS AM. WITHIN 3 MINUTES OF PLACING PROPOFOL ON SB PT WAS ABLE TO FOLLOW SIMPLE COMMANDS, OPENED EYES, SQUEEZED BOTH HANDS, BUT BECAME VERY ANXIOUS. RR INCREASED TO THE 40'S, PT BEGAN STACKING VENTILATIONS AND PULLING AT RESTRAINTS. MEDICATED c 50MCG FENTANYL AND PROPFOL STARTED BACK @ 40MCG/KG/MIN. NO OTHER SIGNIFICANT CHANGES T/O THE NIGHT/ MORNING. WILL CONTINUE TO MONITOR, REPORT TO ONCOMING NURSE.
--- NOTE | 2020-09-04 09:00 | NUR ---
CARE ASSUMED CARE AND REPORT ASSUMED FROM MARTINEZ RN. PT INTUBATED AND SEDATED. VENT AC 16, 300, PEEP 10, FIO2 45%. LUNG SOUNDS CLEAR BUT DIMINISHED. SEDATED WITH PROPOFOL GTT AT 40 MCG. DURING SEDATION VACATION, PT WAS SQUINTING AND ATTEMPTING TO OPEN EYES; WAS ABLE TO SQUEEZE BOTH HANDS ON COMMAND. NYSTATIN APPLIED TO ALL SKIN FOLDS. NS TKO INFUSING. TEMP 99.0. TF AT GOAL RATE, 50 ML/HR; RESIDUAL 40 ML. NSR, HR 70S. BUE RESTRAINED. WILL CONTINUE TO MONITOR.
--- NOTE | 2020-09-04 12:15 | NUR ---
REASSESSMENT PT REMAINS INTUBATED AND SEDATED. VENT CHANGED TO PRESSURE CONTROL 5, RATE 16, PEEP 10, FIO2 55%. PT HAD EPISODE OF RESTLESSNESS, WITH INCREASED RR UP TO 60. FENTANYL AND ATIVAN GIVEN FOR SUPPLEMENTAL SEDATION. PT SINCE THEN HAS RELAXED AND IS NOW TOLERATING VENT WELL. CURRENT SPO2 95%. PROPOFOL GTT AT 40 MCG. TF CONTINUING TO INFUSE; RATE CHANGED TO 40 ML/HR. PT HAD LARGE BOWEL MOVMENT THIS AM; COMPLETE LINEN CHANGED. WILL CONTINUE TO MONITOR.
[2020-09-04 13:46] LABS: PCO2 Arterial 48.8 mmHg (35-45); PO2 Arterial 66.6 mmHg (80-100); pH Blood Arterial 7.42 (7.35-7.45)
--- NOTE | 2020-09-04 15:53 | NUR ---
REASSESSMENT PT REMAINS INTUBATED AND SEDATED. REMAINS ON PRESSURE CONTROL 5, PEEP 10, FIO2 55%. PROPOFOL GTT INCREASED TO 50 MCG TO INCREASE SEDATION AND RELAXATION. ATIVAN AND FENTANYL IVP GIVEN NEEDED. MOST RECENT RESIDUAL 340 ML; TUBE FEEDS DECREASED TO 20 ML/HR. WILL RECHECK RESIDUAL IN 1 HOUR. REMAINS IN NSR. WILL CONTINUE TO MONTIOR.
--- NOTE | 2020-09-04 18:39 | NUR ---
SHIFT SUMMARY PT INTUBATED AND SEDATED ENTIRE SHIFT. VENT AT PC 5, PEEP 10, FIO2 55%. SHE HAS EPISODES WHERE SHE BREATHES OVER THE VENT, RESULTING IN INCREASED RR. ATIVAN AND FENTANYL GIVEN PRN. TUBE FEED DECREASED THIS AFTERNOON DUE TO HIGH RESIDUAL; CURRENTLY INFUSING AT 20 ML/HR. BUE RESTRAINED ENTIRE TIME. HOB ELEVATED AND PT TURNED Q2H. ENTIRE LINENS CHANGE DUE TO LARGE BOWEL MOVEMENT. TMAX 99.4. WILL CONTINUE TO MONITOR.
--- NOTE | 2020-09-04 19:45 | NUR ---
SHIFT ASSESSMENT ASSUMED CARE OF PT @ 1900, REPORT RECV'D FROM PIPER EVANS. PT INTUBATED AND SEDATED. NSR ON THE MONITOR IN THE 70'S. VENT SETTINGS CHANGED FROM PC TO PS 5, PEEP 10, FIO2 55%, PT TOLERATING WELL c O2 SATS >90%. TF @ 20ML/HR, WILL ADJUST NEEDED PER RESIDUAL. BONDS CATH PATENT, DRAINING YELLOW/ GREEN URINE c SEDIMENT. BUE RESTRAINTS IN PLACE. PT TURNED Q 2HR, WILL CONTINUE TO MONITOR.
[2020-09-05 04:56] LABS: Hematocrit 36.1 % (33.0-51.0); Hemoglobin 11.4 g/dL (11.5-16.0); Mean Corpuscular HGB 30.1 pg (26.0-34.0); Mean Corpuscular HGB Conc 31.6 g/dL (31.5-36.5); Mean Corpuscular Volume 95 fL (80-100); Mean Platelet Volume 8.7 fL (9.1-12.4); Platelet Count 203 K/mm3 (150-400); RDW Coefficient Variation 13.6 % (11.7-14.2); RDW Standard Deviation 48.3 fL (35.1-46.3); Red Blood Cell Count 3.79 M/mm3 (3.80-5.20); White Blood Cell Count 16.02 K/mm3 (4.00-11.30)
[2020-09-05 05:16] LABS: Albumin, Blood 2.3 g/dL (3.4-5.0); Anion Gap 5 mmol/L (6-16); Blood Urea Nitrogen 61 mg/dL (8-24); Bun/Creatinine Ratio 62.2 (12.0-20.0); CO2, Blood 31 mmol/L (21-32); Calcium, Blood 8.7 mg/dL (8.5-10.1); Chloride, Blood 102 mmol/L (98-108); Creatinine, Blood 0.98 mg/dL (0.40-1.00); Glomerular Filtration Rate >60 (60-); Glucose, Blood 153 mg/dL (70-99); Phosphorus, Blood 4.8 mg/dL (2.5-4.9); Potassium, Blood 4.6 mmol/L (3.5-5.5); Sodium, Blood 138 mmol/L (136-145)
[2020-09-05 05:21] LABS: BAND PERCENT MAN 2 % (0-8); BASOPHILS PERCENT MAN 0 % (0-2); EOSINOPHILS ABSOLUTE MAN 0.16 K/mm3 (0.00-0.68); EOSINOPHILS PERCENT MAN 1 % (0-6); LYMPHOCYTES ABSOLUTE MAN 1.92 K/mm3 (0.84-5.20); LYMPHOCYTES PERCENT MAN 12 % (21-46); METAMYELOCYTE ABSOLUTE MAN 0.48 K/mm3 (0.00-0.00); METAMYELOCYTE PERCENT MAN 3 % (0-0); MONOCYTES ABSOLUTE MAN 0.96 K/mm3 (0.16-1.47); MONOCYTES PERCENT MAN 6 % (4-13); MYELOCYTE ABSOLUTE MAN 0.32 K/mm3 (0.00-0.00); MYELOCYTE PERCENT MAN 2 % (0-0); NEUTROPHILS ABSOLUTE MAN 12.17 K/mm3 (1.96-9.15); SEG NEUTROPHILS PERCENT MAN 74 % (41-73); TOTAL CELLS COUNTED 100
--- NOTE | 2020-09-05 06:01 | NUR ---
SHIFT SUMMARY PT REMAINS INTUBATED AND SEDATED c VENT SETTINGS: SPONTANEOUS/ PS: FIO2 55%, PEEP 10 c O2 SATS >90%. SEDATION VACATION THIS AM, PT ABLE TO SQUEEZE BOTH HANDS UPON COMMAND. BUE RESTRAINTS REMAIN IN PLACE. AFEBRILE T/O THE NIGHT/AM. WILL CONTINUE TO MONITOR.
--- NOTE | 2020-09-05 08:30 | NUR ---
ASSESSMENT- PT SEDATED WITH PROPOFOL AT 35 MCG/KG/MIN, OFF FOR SEDATION HOLIDAY. ABLE TO FOLLOW BRIEF COMMANDS TO MOVE FEET AND TURNS HEAD TOWARD VOICE. UNABLE TO MOVE FINGERS OR OPEN EYES TO COMMANDS. TOLERATING VENT SUPPORT-PS 5 PEEP 10 WITH TIDAL VOLUMES 500'S, NO DISTRESS OR COUGHING AT REST. LUNGS DIMINISHED, CLEAR. SUCTIONED BLOODY SECRETIONS FROM ETT, SMALL AMOUNT. NSR. SBP LOW-BP MEDICATIONS HELD THIS AM, IMPROVED NOW. ABDOMEN LARGE, OBESE, SOFT. TUBE FEEDING VITAL HIGH PROTEIN AT 20 CC/HR WITH FLUSH 30 CC Q 4 HOURS. RESIDUAL 175 CC-REPLACED. UO LOW VIA BONDS. LASIX GIVEN. SKIN-REDDENED AREAS UNDER FOLDS, BREASTS, SKIN CARE DONE, NYSTATIN APPLIED. RIJ CENTRAL LINE D/I. NS TKO. SCDS ON. REPOSITIONED WITH TWO ASSIST. ENHANCED PRECAUTIONS IN EFFECT. BILATERAL WRIST RESTRAINTS FOR SAFETY-UNABLE TO FOLLOW DIRECTIONS.
--- NOTE | 2020-09-05 10:48 | NUR ---
VSS. COUGHING MORE, PROPOFOL RESTARTED LOW DOSE. REPOSITIONED. INCONTINENT-LUIS CARE DONE. SMALL AMOUNT OUTPUT AFTER LASIX
--- NOTE | 2020-09-05 12:27 | NUR ---
DR. GIL HERE-UPDATED. PT WITH BREATH STACKING, VENT CHANGES WITH SOME IMPROVEMENT, REVERSE TRENDELENBERG POSITION. PROPOFOL INCREASED TO 30 MCG/KG/MIN FOR VENT TOLERANCE. VSS. TUBE FEED ON HOLD.
--- NOTE | 2020-09-05 14:30 | NUR ---
STACKING BREATHS, OXYGEN SATURATIONS STABLE. PROPOFOL INCREASED TO 35 MCG/KG/MIN, RX WITH FENTANYL FOR SEDATION, GRIMACING WITH IMPROVEMENT OF VENT TOLERANCE. OGT WITH 150 CC DRAINAGE. CLAMPED AFTER MEDS. INCONTINENT SMALL LIQUID STOOL-LINEN CHANGE. ABLE TO DECREASE FIO2 TO 40%
--- NOTE | 2020-09-05 17:04 | NUR ---
REPOSITIONED PT, DIFFICULT TO TURN. INCONTINENT-RECTAL TUBE PLACED. URINE LEAKAGE, LINEN CHANGE. UO GOOD VIA BONDS. DR. GIL HERE-UPDATED WITH VENT SETTINGS, LESS BREATH STACKING NOTED. PLANS FOR FENTANYL IV GTT TO START. REPORT TO DAVE EVANS.
--- NOTE | 2020-09-05 19:15 | NUR ---
RECEIVED REPORT FROM DAVE EVANS. ASSUMED CARE OF PATIENT. PATIENT INTUBATED WITH SETTINGS SIMV 12, FIO2 30%, PEEP 10. PROPOFOL INFUSING AT 50MCG/KG/MIN, FENTANYL AT 25MCG/HR. BONDS AND RECTAL TUBE TO GRAVITY. WILL MONITOR AND TREAT PRESCRIBED.
--- NOTE | 2020-09-05 19:24 | NUR ---
Assumed care of pt at 1630 from Malorie EVANS. Pt intubated. Sedated with 35 mcg/kg/min propofol. Pt double-stacking breaths. Dr Khan aware. Propofol increased to 50 mcg/kg/min. Fentanyl drip started at 25 mcg/hr per Dr Khan. Rectal tube placed due to incontinent voids of liquid stool in addition to pt having pressure ulcer to sacrum, stage 2 with the surrouning skin red/purple and irritated. Hudson dressing to sacrum changed as it was no longer intact. Dry Flows changed beneath patient as it appears that urine is leaking from around urethra. Stat-lock removed as it was preventing optimal urine drainage due to patient's body habitus. Measured residual from OG tube prior to administering 1800 meds, 10 mL residual measured. Report given to oncoming RNRahel.
--- NOTE | 2020-09-06 | NUR ---
REASSESSMENT NO ACUTE CHANGES FROM INITIAL ASSESSMENT. VENT SETTINGS SPONTANEOUS FIO2 35%, PEEP 10, VT300. PATIENT TOLERATING THESE SETTINGS, PREVIOUSLY ALARMING LOW TIDAL VOLUMES AND BREATHING OVER VENT ON PREVIOIUS SETTINGS. PROPOFOL AT 50MCG/KG/MIN. FENTANYL AT 25MCG/HR. PLACED PATIENT'S OG ON LIS DUE TO HIGH AMOUNT OF RESIDUALS REMAINING. DARK OUTPUT IMMEDIATELY DRAINING FROM TUBE. WILL MONITORL AMOUNT OF OUTPUT.
--- NOTE | 2020-09-06 04:00 | NUR ---
REASSESSMENT NO ACUTE CHANGES FROM PREVIOUS ASSESSMENT. VENT SETTINGS REMAIN UNCHANGED, PATIENT TOLERATING THEM WELL. PROPOFOL AND FENTANYL INFUSING, VITALS STABLE CHARTED.
[2020-09-06 04:37] LABS: BASOPHILS ABSOLUTE AUTO 0.07 K/mm3 (0.00-0.23); BASOPHILS PERCENT AUTO 1 % (0-2); EOSINOPHILS ABSOLUTE AUTO 0.08 K/mm3 (0.00-0.68); EOSINOPHILS PERCENT AUTO 1 % (0-6); Hematocrit 35.6 % (33.0-51.0); Hemoglobin 11.2 g/dL (11.5-16.0); IMMATURE GRAN ABSOLUTE AUTO 1.08 K/mm3 (0.00-0.10); IMMATURE GRAN PERCENT AUTO 7 % (0-1); LYMPHOCYTES PERCENT AUTO 13 % (21-46); MONOCYTES ABSOLUTE AUTO 1.24 K/mm3 (0.16-1.47); MONOCYTES PERCENT AUTO 8 % (4-13); Mean Corpuscular HGB 29.7 pg (26.0-34.0); Mean Corpuscular HGB Conc 31.5 g/dL (31.5-36.5); Mean Corpuscular Volume 94 fL (80-100); Mean Platelet Volume 8.8 fL (9.1-12.4); NEUTROPHILS PERCENT AUTO 71 % (41-73); Platelet Count 209 K/mm3 (150-400); RDW Coefficient Variation 13.6 % (11.7-14.2); RDW Standard Deviation 47.8 fL (35.1-46.3); Red Blood Cell Count 3.77 M/mm3 (3.80-5.20); White Blood Cell Count 15.07 K/mm3 (4.00-11.30)
[2020-09-06 04:52] LABS: Albumin, Blood 2.5 g/dL (3.4-5.0); Anion Gap 5 mmol/L (6-16); Blood Urea Nitrogen 67 mg/dL (8-24); Bun/Creatinine Ratio 67.5 (12.0-20.0); CO2, Blood 33 mmol/L (21-32); Calcium, Blood 8.7 mg/dL (8.5-10.1); Chloride, Blood 101 mmol/L (98-108); Creatinine, Blood 0.99 mg/dL (0.40-1.00); Glomerular Filtration Rate >60 (60-); Glucose, Blood 107 mg/dL (70-99); Phosphorus, Blood 4.6 mg/dL (2.5-4.9); Potassium, Blood 4.2 mmol/L (3.5-5.5); Sodium, Blood 139 mmol/L (136-145)
[2020-09-06 04:56] LABS: BAND PERCENT MAN 1 % (0-8); BASOPHILS PERCENT MAN 0 % (0-2); EOSINOPHILS PERCENT MAN 0 % (0-6); LYMPHOCYTES ABSOLUTE MAN 2.26 K/mm3 (0.84-5.20); LYMPHOCYTES PERCENT MAN 15 % (21-46); METAMYELOCYTE ABSOLUTE MAN 0.15 K/mm3 (0.00-0.00); METAMYELOCYTE PERCENT MAN 1 % (0-0); MONOCYTES ABSOLUTE MAN 0.45 K/mm3 (0.16-1.47); MONOCYTES PERCENT MAN 3 % (4-13); SEG NEUTROPHILS PERCENT MAN 80 % (41-73); TOTAL CELLS COUNTED 100
--- NOTE | 2020-09-06 06:40 | NUR ---
SHIFT SUMMARY PATIENT REMAINS INTUBATED AND SEDATED. NO CHANGES TO VENT SETTINGS SINCE PREVIOUS ADJUSTMENTS. OG TO LIS CONTINUES WITH DARK DRAINAGE, BONDS TO GRAVITY, RECTAL TUBE WITH NO OUTPUT. WILL GIVE REPORT TO ONCOMING SHIFT.
--- NOTE | 2020-09-06 08:45 | NUR ---
ASSESSMENT- PT SEDATED WTIH PROPOFOL AT 40 MCG/KG/MIN, HELD FOR 15 MINUTES-GRIMACING BROW, VENT ALARMING, RESTARTED WITH IMPROVEMENT. ORALLY INTUBATED, TUBE SECURE. LUNGS CLEAR, DIMINISHED THROUGHOUT. SUCTIONED SMALL AMOUNT CLEAR RED SECRETIONS. PERRL, MOVES FEET IN RESPONSE TO TOUCH. NSR. SBP LOW LAST NIGHT, IMPROVED-BP MEDICATIONS HELD. OGT TO LIS WITH DARK BROWN DRAINAGE, FEW BOWEL SOUNDS HEARD, ABDOMEN LARGE, OBESE, SOFT. RECTAL TUBE WITH NO DRAINAGE-D/C. BONDS WITH LARGE AMOUNT URINE LEAKAGE, REPLACED. ON ENHANCED PRECAUTIONS. SCDS ON. FENTANYL GTT AT 25 MCG/HR FOR PAIN AND VENT TOLERANCE. NO BREATH STACKING NOTED. RIJ CENTRAL LINE DI WITH NS TKO. REPOSITIONED
--- NOTE | 2020-09-06 10:12 | NUR ---
PT HYPOTENSIVE, RESOLVED. TOLERATING VENT. PROPOFOL DECREASED TO 30 MCG/MIN. UO GOOD VIA BONDS
[2020-09-06 11:26] LABS: Source, Urine Catheter
[2020-09-06 11:35] LABS: Bilirubin, Urine Neg (Neg); Blood, Urine 2+ (Neg); Glucose Qualitative, Urine Neg (Neg); Ketones, Urine Neg (Neg); Leukocyte Esterase, Urine 2+ (Neg); Nitrite, Urine Neg (Neg); Protein, Urine Neg (Neg); Urobilinogen, Urine NORM (Normal)
--- NOTE | 2020-09-06 11:35 | NUR ---
VSS. ABLE TO DECREASE PROPOFOL TO 25 MCG/KG/MIN. REPOSTIONED. URINE SAMPLE SENT.
[2020-09-06 11:47] LABS: Appearance, Urine Clear (Clear); Color, Urine Pale Yellow (P-Yellow)
[2020-09-06 11:51] LABS: Bacteria Few /hpf; Squamous Epithelial Cells Rare /hpf (Few)
--- NOTE | 2020-09-06 12:47 | NUR ---
UPDATE TO DR. GIL. PLAN FOR TRICKLE FEEDS TO RESTART-DONE.
--- NOTE | 2020-09-06 13:55 | NUR ---
REPOSITIONED, SEDATED, PROPOFOL AT 25 MCG/KG/MIN, OCCASIONAL BREATH STACKING. WILL NOT DECREASE ANY FURTHER AND WILL MONITOR CLOSELY
--- NOTE | 2020-09-06 16:45 | NUR ---
VSS, REPOSITIONED, MEPILEX CHANGED TO COCCYX-SMALL OPEN AREA PRESENT. POSTERIOR THIGHS WITH DARKENED SKIN. REPOSITIONED TO KEEP PRESSURE OFF. REMAINS SEDATED, TOLERATING VENT. DR. QUINONES HERE-UPDATED.
--- NOTE | 2020-09-06 18:15 | NUR ---
VSS. TOLERATING VENT. CONTINUE TO MONITOR
--- NOTE | 2020-09-06 19:13 | NUR ---
ASSUMPTION OF CARE RECEIVED REPORT FROM JOSE EVANS. ASSUMED CARE OF PATIENT. PATIENT SEDATED, INTUBATED, PROPOFOL AT 25MCG, FENTANYL AT 25MCG, TUBE FEEDS INFUSING, NO S/S OF DISTRESS. WILL MONITOR AND TREAT PRESCRIBED.
--- NOTE | 2020-09-07 | NUR ---
REASSESSMENT NO ACUTE CHANGES FROM INITIAL ASSESSMENT. VENT SETTINGS FIO2 DECREASED TO 30% PER RT. VITALS STABLE CHARTED.
--- NOTE | 2020-09-07 04:00 | NUR ---
REASSESSMENT NO ACUTE CHANGES FROM PREVIOUS ASSESSMENT. ATTEMPTED A SEDATION VACATION, VENT CONTIUOUSLY ALARMING, BUT PATIENT DID NOT OPEN EYES, OR FOLLOW COMMANDS. TF CONTINUE AT 20ML/HR, RESIDUALS CHARTED. WILL MONITOR.
[2020-09-07 04:24] LABS: BASOPHILS ABSOLUTE AUTO 0.05 K/mm3 (0.00-0.23); BASOPHILS PERCENT AUTO 0 % (0-2); EOSINOPHILS ABSOLUTE AUTO 0.07 K/mm3 (0.00-0.68); EOSINOPHILS PERCENT AUTO 1 % (0-6); Hematocrit 35.9 % (33.0-51.0); Hemoglobin 11.6 g/dL (11.5-16.0); IMMATURE GRAN ABSOLUTE AUTO 0.85 K/mm3 (0.00-0.10); IMMATURE GRAN PERCENT AUTO 7 % (0-1); LYMPHOCYTES ABSOLUTE AUTO 1.61 K/mm3 (0.84-5.20); LYMPHOCYTES PERCENT AUTO 13 % (21-46); MONOCYTES ABSOLUTE AUTO 1.33 K/mm3 (0.16-1.47); MONOCYTES PERCENT AUTO 11 % (4-13); Mean Corpuscular HGB 30.4 pg (26.0-34.0); Mean Corpuscular HGB Conc 32.3 g/dL (31.5-36.5); Mean Corpuscular Volume 94 fL (80-100); Mean Platelet Volume 9.1 fL (9.1-12.4); NEUTROPHILS ABSOLUTE AUTO 8.69 K/mm3 (1.96-9.15); NEUTROPHILS PERCENT AUTO 69 % (41-73); NRBC ABSOLUTE 0.02 K/mm3 (0.00-0.02); NRBC Auto 0.2 /100 WBC (0.0-0.2); Platelet Count 194 K/mm3 (150-400); RDW Coefficient Variation 13.6 % (11.7-14.2); RDW Standard Deviation 46.9 fL (35.1-46.3); Red Blood Cell Count 3.82 M/mm3 (3.80-5.20)
[2020-09-07 04:43] LABS: Albumin, Blood 2.5 g/dL (3.4-5.0); Anion Gap 4 mmol/L (6-16); Blood Urea Nitrogen 65 mg/dL (8-24); Bun/Creatinine Ratio 77.1 (12.0-20.0); CO2, Blood 34 mmol/L (21-32); Chloride, Blood 101 mmol/L (98-108); Creatinine, Blood 0.84 mg/dL (0.40-1.00); Glomerular Filtration Rate >60 (60-); Glucose, Blood 134 mg/dL (70-99); Phosphorus, Blood 3.7 mg/dL (2.5-4.9); Potassium, Blood 3.9 mmol/L (3.5-5.5); Sodium, Blood 139 mmol/L (136-145)
[2020-09-07 05:30] LABS: BAND PERCENT MAN 1 % (0-8); BASOPHILS PERCENT MAN 0 % (0-2); EOSINOPHILS PERCENT MAN 0 % (0-6); LYMPHOCYTES ABSOLUTE MAN 0.75 K/mm3 (0.84-5.20); LYMPHOCYTES PERCENT MAN 6 % (21-46); METAMYELOCYTE ABSOLUTE MAN 0.25 K/mm3 (0.00-0.00); METAMYELOCYTE PERCENT MAN 2 % (0-0); MONOCYTES ABSOLUTE MAN 0.37 K/mm3 (0.16-1.47); MONOCYTES PERCENT MAN 3 % (4-13); NEUTROPHILS ABSOLUTE MAN 11.21 K/mm3 (1.96-9.15); SEG NEUTROPHILS PERCENT MAN 88 % (41-73); TOTAL CELLS COUNTED 100
--- NOTE | 2020-09-07 06:39 | NUR ---
SHIFT SUMMARY PATIENT REMAINS INTUBATED AND SEDATED. VENT SETTINGS ARE SPONTANEOUS OF 7, PEEP OF 10, FIO2 30%. FENTANYL AT 25MCG/HR, AND PROPOFOL AT 30MCG/KG. VITALS CHARTED. LABS RESULTED AND REVIEWED. WILL REPORT TO ONCOMING SHIFT.
--- NOTE | 2020-09-07 09:06 | NUR ---
CARE ASSUMED OF PT AT 0700. PT SEDATED ON PROPOFOL AT 30MCG AND FENT AT [facility]MCG/[facility]. PROPOFOL PLACED ON STANDBY AT 0800 FOR ~20MIN. PT GRIMACED MORE, RESP RATE INCREASED TO LOW 20'S. PT DID NOT FOLLOW DIRECTIONS. NO MOVEMENT NOTED TO EXTREMITIES. PT RESISTED/SQUEEZED SHUT EYES TIGHT WHILE TRYING TO ASSESS PUPILS. GAG AND COUGH INCREASED W OCC STACKING ON VENT. PROPOFOL RESTARTED SATS DROPPED TO LOW 80%; SATS 94% LESS THAN 5MIN AFTER RESTARTING PROPOFOL. DR CONTRERAS (MARGUERITE AND AIDA) IN TO SEE PT, FULL UPDATE GIVEN. FAMILY MEETING TODAY REGARDING PLAN AT 1100. DR RANGEL IN TO SEE PT. FENT AND PROPOFOL PLACED HOLD AT [address] RANGEL FOR ASSESSMENT. ABSENT BT'S; BUT RESIDUAL 5CC; TF AT 20CC/HR. BONDS CONT TO LEAK. LUNGS RELATIVELY CLEAR. MURMUR NOTED.
--- NOTE | 2020-09-07 11:09 | NUR ---
PT'S LINEN CHANGED IT WAS SOAKED THROUGH D/T LEAKING BONDS CATHETER. SEDATION/FENT REMAINS OFF. SOME MOVEMENT OF HANDS NOTED, AND MORE FACIAL GRIMACING W CARE. PT IS STILL UNABLE TO FOLLOW DIRECTIONS OR OPENS EYES TO VOICE. SATS 91-92% ON 30% FIO2.
--- NOTE | 2020-09-07 11:12 | NUR ---
PT NOW COMFORT CARE AND IS TO BE EXTUBATED PER DR RANGEL. AWAITING FURTHER ORDERS.
--- NOTE | 2020-09-07 11:31 | NUR ---
Family meeting conducted with doctor Michael Neri and dosctblanquita Salazar. Palliative care present and cah;shaheed Mazariegos to support family. Pt and sons in to review plan of care. Physicians reviewed current status on ventalation and ICU care and discussed with family [facility] prognaosis and searched [facility] pt wishes if she could express them. Pt reviewed her declining quality of life and the meaningful converstions they have had on her desire to not suffer. THEy have had as a family careful discussion on her wishes based on her health , her shanika and family. Plan is to extubate pt and place on comfort measures.
--- NOTE | 2020-09-07 12:03 | NUR ---
15.6MLS CLEAR FROM FENTANYL PUMP. PT EXTUBATED AT 1155. MS 2MG GIVEN FOR SOME DYSPNEA; INCREASED WORK OF BREATHING. PT APPEARS COMFORTABLE AT THIS MOMENT. AT BEDSIDE.
--- NOTE | 2020-09-07 12:33 | NUR ---
FENTANYL WASTE: 95MLS FENTALYL WASTED FROM FENTANYL GTT BAG AT 1210 WITH MOIZ LARSON RN.
--- NOTE | 2020-09-07 13:15 | NUR ---
FAMILY CALLED; CONCERNED PT IS UNCOMFORTABLE. PT MOANING, BREATHING LOUD, RESP INCREASED; MS 2MG IVP GIVEN. PT APPEARS MORE COMFORTABLE NOW
--- NOTE | 2020-09-07 17:38 | NUR ---
PT REPOSITIONED, ORAL CARE PROVIDED. SORE NOTED ON PALATE FROM ETT. PT TEARED UP AND GRIMACED QUITE A BIT WITH ORAL CARE AND POSITION CHANGE. MS 2MG IV GIVEN WITHOUT RELIEF. PT CONTINUED TO MOAN WITH HEAVY RESPIRATIONS. DOSE REPEATED ABOUT 10MIN LATER W BETTER RESULTS.
--- NOTE | 2020-09-07 17:48 | NUR ---
Spiritual care note: Present during family meeting with physicians this AM at family request. Prayer provided before extubation. Gentle counselor manager was well recieved and family appears to be in agreement to allow Jill a natural . Visited with family throughout this shift, offereing encouragement and counselor manager. As of this writting, Jill appears comfortable, non-responsive. I will remain available.
--- NOTE | 2020-09-07 19:17 | NUR ---
ASSUMPTION OF CARE RECEIVED REPORT FROM LORETTA EVANS. ASSUMED CARE OF PATIENT. NO S/S OF DISTRESS. FAMILY TO BEDSIDE.
--- NOTE | 2020-09-07 19:45 | NUR ---
TRANSFER REPORT GIVEN TO PATRICK EVANS. PATIENT TRANSFERRED VIA BED, TWO RN ASSIST TO MEDICAL FLOOR. FAMILY NOTIFIED AND PRESENT DURING TRANSFER.
--- NOTE | 2020-09-07 21:23 | NUR ---
TRANSFER PT TRANSFERED FROM ICU TO RM 311. 4 PER SLIDE TRANSFER TO NEW BED. PT ON COMFORT MEASURES. FAMILY AT BEDSIDE, PROVIDED ISO GOWNS TO WEAR, THEY HAD PERSONAL MASKS. FAMILY ASKED PT TO BE GIVEN PAIN MEDICATION FOR COMFORT, WILL CONTINUE TO MONITOR.
--- NOTE | 2020-09-08 06:44 | NUR ---
SHIFT SUMMARY COMFORT CARE. DOES NOT FOLLOW DIRECTIONS, UNRESPONSIVE. DID OPEN EYES 2X WHEN NAME STATED & BIT DOWN ON ORAL MOISTURIZING SWAB. MEDICATED 1X c ATIVAN, FOR FAMILY REPORTED PT APPEARED RESTLESS/UNCOMFORTABLE. MEDICATED 4X c ROXANOL PER ORDERS FOR COMFORT & FAMILIES WISHES. PT DOES OCCASIONALLY GRIMACE/MOAN c MOVEMENT. RR 12, LOUD SNORING c BREATHING, ASKED TO CHECK SPO2, IT WAS 75% ON RA. BONDS IS PATENT c URINE OUTPUT. FAMILY DENIED NEED FOR REPOSITIONING Q2H. LEOBARDO HAS BEEN @BEDSIDE T/O NIGHT c MASK ON. CALL LIGHT IN REACH & I NOTIFIED HIM TO CALL IF ANY CHANGES OCCUR WHILE STAFF IS NOT IN ROOM.
--- NOTE | 2020-09-08 08:09 | NUR ---
@ onset of shift pt resting supine, supported W pillows. no s/s pain @ this time, no air hunger. @ bedside state pt appears comfortable. hrr, lungs coarse, r/r approx 16-20, she is on ra. bt's hypo abd soft obese. white cath patent drng cl yellow urine. skin is warm, not diaphoretic. cl rij in place, drsg intact. will mx & provide comfort care.
--- NOTE | 2020-09-08 11:58 | NUR ---
pt in covid g[place] review of pt needs with charge nurse. will continue support to family.
--- NOTE | 2020-09-08 16:26 | NUR ---
DR CONTRERAS ROUND ON PT, VISIT w PT'S FAMILY IN ROOM, ANSWER QUESTIONS. DR EXPLAIN TO USE MEDICATIONS CAUTIOUSLY, AVOID SEDATION IN HOPES THAT PT WILL AROUSE ENOUGH TO INTERACT w FAMILY. PT @ THIS TIME CONTINUES NONVERBAL, NOT AROUSABLE. ORAL CARE PROVIDED. SKIN CONTINUES WARM TO TOUCH, COOL TOWEL APPLIED TO FOREHEAD.
--- NOTE | 2020-09-08 16:34 | NUR ---
PT CONTINUES NONRESPONSIVE, NONVERBAL. DURING REPOSITIONING SHE WINCES & MOANS, APPEARS PAINFUL. DISCUSEED w FAMILY, PRN ROXANOL 10MG GIVEN @ THIS TIME. APPEARS EFFECTIVE, S/S PAIN DECREASED. SKIN CONTINUES WARM TO TOUCH, BLANKET REMOVED, COVER W SHEET.
--- NOTE | 2020-09-08 16:38 | NUR ---
FAMILY @ BEDSIDE. MILD WET/GURGLING THROAT SOUNDS NOTED, SX SET UP IN ROOM, ATTEMPT TO REMOVE SECRETIONS UNSUCCESSFUL, PRN ATROPINE GTTS PROVIDED w GOOD RESULTS. PT REPOSITIONED FOR COMFORT.
--- NOTE | 2020-09-08 16:43 | NUR ---
PT'S MOTHER WHO IS A PT IN [employer] ALLOWED TO VISIT HER PER DR CONTRERAS & DAIRY HUSBANDRY WORKER. FAMILY OVERSEE VISIT.
--- NOTE | 2020-09-08 16:45 | NUR ---
LUIS CARE/CATH CARE PROVIDED, ATTENDS CHANGED. LIGHT ORAL CARE PROVIDED. PT REPOSITIONED FOR COMFORT & TO ALIEVIATE MILD SECRETIONS. PT AGAIN PAINFUL w MOVEMENT/TURNING, PRN ROXANOL PROVIDED. COMFORT CARE EDUCATION RE-EMPHASIZED w FAMILY. THEY STATE SATISFACTION.
--- NOTE | 2020-09-08 18:44 | NUR ---
FAMILY @ BEDSIDE. PT RESTING SUPINE SUPPORTED w PILLOWS. ORAL CARE PROVIDED. PT DEMONSTRATING MILD S/S PAIN, MOANING LIGHTLY, SLIGHT BROW FURROWING. DISCUSSESD w FAMILY, THEY FEEL BEST TO GIVE PRN ROXANOL 10MG @ THIS TIME. R/R CONTINUES APPROX 16 W OCC PAUSES. SKIN IS WARM HOWEVER NOT DIAPHORETIC. HRR. URINE OUTPUT 200ML VIA BONDS TODAY. FAMILY WILL CONTINUE IN ROOM TONITE, THEY HAVE BEEN SUPPORTIVE T/O DAY.
--- NOTE | 2020-09-08 21:20 | NUR ---
RESTING WITH HEAD ELEVATED ABOUT 40 DEGREES FOR COMFORT. FAMILY AROUND BEDSIDES. ISOLATION PRECAUTIONS MAINTAINED. CALL LIGHT IN REACH OF FAMILY
--- NOTE | 2020-09-08 21:31 | NUR ---
PT REMAINS ON COMFORT CARE. FAMILY AT BEDSIDE. TO REMAIN AT BEDSIDE TONIGHT. PT REATING QUIETLY. RESPS EVEN AND NO NOTED S/S ACUTE DISTRESS. CALL LIGHT IN REACH
--- NOTE | 2020-09-08 23:49 | NUR ---
RESTING QUIETLY WITH NEAR BEDSSIDE, HOB ELEVATED. CALL LIGHT IN REACH OF
--- NOTE | 2020-09-09 00:07 | NUR ---
REPOSITIONED FOR COMFORT. ANALGESIC FOR PAIN. SPOKE WITH , EMPATHY PROVIDED. CALL LIGHT IN REACH
--- NOTE | 2020-09-09 01:48 | NUR ---
RESTING QUIETLY. HOB ELEVATED. CALL LIGHT IN REACH. ISOLATION MAINTAINED
--- NOTE | 2020-09-09 03:14 | NUR ---
SLIGHT MOANING NOTED, SL ANALGESIC ADMINISTEREED - SEE MAR FOR DETAILS. CALL LIGHT IN REACH. SPOKE WITH
--- NOTE | 2020-09-09 04:47 | NUR ---
SHIFT SUMMARY REMAINS ON COMFORT CARE. HAS RECEIVED SL ANALGESICS FOR COMFORT -SEE MAR FOR DETAILS. HOB ELEVATED, AT BEDSIDE. ISOLATION PRECAUTIONS MAINTAINED. CALL LIGHT IN REACH
--- NOTE | 2020-09-09 06:14 | NUR ---
RESTING QUIETLY, HOB ELEVATED, CALL LIGHT IN REACH
--- NOTE | 2020-09-09 16:35 | NUR ---
Spiritual care note: Provided prayer and marriage counselor to family. Component Overhaul Operator present as well. Jill appears non-responsive, breaths shallow, but even. She looks well cared-for by nursing. Family in various stages of tearfulness. Encouraged reminising and self-care. I will remain available.
--- NOTE | 2020-09-09 18:33 | NUR ---
SHIFT SUMMARY: ON COMFORT CARE. NON RESPONSIVE TO ANY STIMULI. HAVING SHORT PERIODS OF APNEA, NO VISIBLE SIGNS OF AIR HUNGER. MEDICATED FOR PAIN AND SECRETIONS PER EMAR. APPEARS CALM AND COMFORTABLE AT THIS TIME, SPOUSE AND SON AT BEDSIDE.
--- NOTE | 2020-09-09 20:00 | NUR ---
COMFORT CARE FAMILY PRESENT IN ROOM, THEY WISH REPOSITIONING TO BE DEFERRED AT THIS TIME D/T PAIN AND DISCOMFORT FOR PT. SL PAIN MEDS GIVEN WELL ATROPINE DROPS FOR SECRETIONS
--- NOTE | 2020-09-09 22:00 | NUR ---
COMFORT CARE FAMILY PRESENT AT BEDSIDE. ORAL CARE AND SUCTIONING COMPLETED. BED IN LOWEST POSITION WITH CALL LIGHT IN REACH. WILL CONTINUE TO MONITOR
--- NOTE | 2020-09-10 04:56 | NUR ---
RESEARCH AIDE SUMMARY PT CONTINUES TO BE UNRESPONSIVE WITH BRIEF PERIODS OF APNEA. SL PAIN MEDS GIVEN WELL ATROPINE DROPS FOR SECRETIONS. ORAL CARE AND SUCTIONING COMPLETED. AT BEDSIDE DURING SHIFT. BED IN LOWEST POSITION WITH CALL LIGHT IN REACH. WILL CONTINUE TO MONITOR AND REPORT TO ONCOMING RN.
--- NOTE | 2020-09-10 18:03 | NUR ---
Spiritual care note: Provided encouragement and drug and alcohol counsellor to son and DIL at bedside. Jill appears non-responsive with noticible breathing change from yesterday. She appears comfortable. Facilitated emotional ventilation with family. Prayer provided. No concerns presented by family. Offered continued spiritual support.
--- NOTE | 2020-09-10 18:12 | NUR ---
SHIFT SUMMARY. PT IS UNRESPONSIVE, DID NOT GRIMACE OR MOAN WITH REPOSITIONING. PT WITH MILD AIR HUNGAR DURING SHIFT, SYMPTOM MANAGED WITH CURRENT ORDERS. URINE OUTPUT HAS DECREASED THIS SHIFT, URINE IS DARK SHANTAL. FAMILY AT BEDSIDE ENTIRE SHIFT, WAS ABLE TO GO HOME AND REST THIS AFTERNOON AFTER BEING RELIEVED BY DAUGHTER IN LAW. SON, , AND DAUGHTER IN LAW AT BEDSIDE AT THIS TIME. EXCESS SECRETIONS MANAGED WITH CURRENT ORDERS. PT RESTING COMFORTABLY DURING MOST OF SHIFT WITHOUT SYMPTOMS OF DISCOMFORT, MILD DISTRESS R/T AIR HUNGAR MANAGED WITH CURRENT ORDERS. PERIODS OF APNEA OF INCREASED THIS SHIFT, FAMILY NOTES THAT BREATHING PATTERN HAS CHANGED TODAY COMPARED TO YESTERDAY. SPIRITUAL CARE IN TO VISIT THIS AFTERNOON. NO OTHER CHANGES OR CONCERNS.
--- NOTE | 2020-09-10 19:20 | NUR ---
FAMILY IS IN ROOM AT THIS TIME.
--- NOTE | 2020-09-10 20:17 | NUR ---
PT FAMILY AT BEDSIDE. FAMILY REFUSED ON REPOSITION THE PT AT THIS TIME
--- NOTE | 2020-09-10 22:46 | NUR ---
PT MEDICATED PER EMAR; FOR PAIN AND SECRETIONS. AT BEDSIDE. REFUSED ON REPOSITION AT THIS MOMENT.
--- NOTE | 2020-09-11 01:15 | NUR ---
PT MEDICATED PER EMAR; REFUSED TO REPOSITION THE PT AT THIS TIME.
--- NOTE | 2020-09-11 02:17 | NUR ---
PT AT BEDSIDE. SUCTION NEEDED.
--- NOTE | 2020-09-11 04:30 | NUR ---
PT MEDICATED FOR SECRETION. PT IN THE ROOM; REFUSED ON REPOSITION AT THIS TIME.
--- NOTE | 2020-09-11 05:06 | NUR ---
SHIFT SUMMARY PT IS A COMFORT CARE PT; AT BEDSIDE ALL NIGHT. EPISODES OF APNEA NOTED PT MEDICATED FOR EXCESSIVE SECRETIONS AND PAIN PER DR ORDER. ORAL CARE AND SUCTIONING NEEDED. PT BED IS IN THE LOWEST POSITION AND CALL LIGHTS WITHIN REACH.
--- NOTE | 2020-09-11 18:06 | NUR ---
SHIFT SUMMARY. PT UNRESPONSIVE ALL SHIFT, PT WITH INCREASING APNEIC PERIODS SHIFT PROGRESSED, COMFORT MANAGED WELL WITH CURRENT ORDERS. FAMILY AT BEDSIDE ENTIRE SHIFT. [address] 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 FAMILY REQUESTING [facility] FOR MORTUARY. FAMILY REMAINS AT BEDSIDE AT THIS TIME.
--- NOTE | 2020-09-11 20:02 | NUR ---
Dr. Zaidi from [place] called 1950 to acknowledge patients . Acknowledgement to chart as requested
== END 2020-09-11 17:00 | DRG 207 ==
LOC: ER 09:47 → PCU 09:48 → ICUE 09:48 → PCU 17:48 → MEDS 08-24 09:35 → ICUE 08-27 22:53 → MEDS 09-07 20:08
PROVIDERS: Emergency Medicine; Hospitalist; Internal Medicine; Internal Medicine Critical Care Medicine; ADMIT Family Medicine
PROC: XW033E5 Introduction of Remdesivir Anti-infective into Peripheral Vein, Percutaneous Approach, New Technology Group 5 (ICD-10-PCS; principal; 2020-08-21)
PROC: 5A09357 Assistance with Respiratory Ventilation, Less than 24 Consecutive Hours, Continuous Positive Airway Pressure (ICD-10-PCS; 2020-08-30)
PROC: 5A1955Z Respiratory Ventilation, Greater than 96 Consecutive Hours (ICD-10-PCS; 2020-08-30)
PROC: 0BH18EZ Insertion of Endotracheal Airway into Trachea, Via Natural or Artificial Opening Endoscopic (ICD-10-PCS; 2020-08-30)
PROC: 02HV33Z Insertion of Infusion Device into Superior Vena Cava, Percutaneous Approach (ICD-10-PCS; 2020-08-30)
DX: U07.1 COVID-19 (principal); J96.01 Acute respiratory failure with hypoxia; J12.89 Other viral pneumonia; J45.901 Unspecified asthma with (acute) exacerbation; N17.9 Acute kidney failure, unspecified; I13.0 Hypertensive heart and chronic kidney disease with heart failure and stage 1 through stage 4 chronic kidney disease, or unspecified chronic kidney disease; I50.32 Chronic diastolic (congestive) heart failure; N39.0 Urinary tract infection, site not specified; G93.40 Encephalopathy, unspecified; Z68.45 Body mass index [BMI] 70 or greater, adult; G20 Parkinson's disease; M54.9 Dorsalgia, unspecified; G89.29 Other chronic pain; F32.9 Major depressive disorder, single episode, unspecified; Z51.5 Encounter for palliative care; Z66 Do not resuscitate; I87.2 Venous insufficiency (chronic) (peripheral); E11.9 Type 2 diabetes mellitus without complications; E66.01 Morbid (severe) obesity due to excess calories; E11.22 Type 2 diabetes mellitus with diabetic chronic kidney disease; N18.32 Chronic kidney disease, stage 3b; B36.9 Superficial mycosis, unspecified; N32.81 Overactive bladder; R34 Anuria and oliguria; Z86.718 Personal history of other venous thrombosis and embolism; Z88.0 Allergy status to penicillin; Z88.2 Allergy status to sulfonamides; Z88.1 Allergy status to other antibiotic agents; Z88.8 Allergy status to other drugs, medicaments and biological substances; Z79.01 Long term (current) use of anticoagulants; Z79.891 Long term (current) use of opiate analgesic; Z79.899 Other long term (current) drug therapy
CPT/HCPCS: 31500; 31720; 36415; 36556; 36600; 51702; 51703; 71045; 80048; 80053; 80069; 81001; 82330; 82803; 82947; 83735; 83880; 84100; 84145; 84484; 85025; 85610; 85730; 86140; 87040; 87070; 87077; 87086; 87186; 87205; 93005; 93010; 94002; 94003; 94640; 94660; 94760; 94762; 96365; 97110; 97161; 97165; 97530; 99285-25; A9270; C1751; J0696; J1100; J1940; J2060; J2250; J2270; J2704; J2920; J3010; J7050; U0004